=== PATIENT | male | born 1955 | race Caucasian/White ===

== ENCOUNTER 2017-03-16 06:06 | Inpatient (IN) ==
[2017-03-16] MEDS ORDERED: Ipratropium/Albuterol Neb 3 ML IH ONE (06:21)
--- NOTE | 2017-03-16 06:34 | Emergency Department Note ---
Disposition Clinical Impression: ALMA (acute kidney injury) CHF (congestive heart failure) Qualifiers: Congestive heart failure type: systolic Congestive heart failure chronicity: acute on chronic Qualified Code(s): I50.23 - Acute on chronic systolic ( congestive) heart failure Disposition: Admitted As Inpatient Condition: Undetermined SOB HPI - General Chief Complaint: ED Shortness of Breath/Dyspnea Stated Complaint: CHF Time Seen by Provider: 03/16/17 06:13 Source: patient Mode of arrival: private vehicle Limitations: no limitations Nursing Notes Reviewed: Yes Vital Signs Reviewed: Yes - History of Present Illness Pt Subjective Complaint: shortness of breath Onset (ago): day(s) (3) Context: other Severity: moderate, severe Consistency/Duration: constant Improves with: oxygen, upright position Worsens with: lying flat, exertion, coughing Known history of: COPD, congestive heart failure Associated symptoms: Reports: cough, orthopnea, other ("belly is bigger than usual"). Denies: chest pain, pain with inspiration, fever, wheezing, sputum production, lower extremity pain, polyuria, polydipsia, parasthesias, palpitations, hemoptysis, diaphoresis, nausea/vomiting, syncope, abdominal pain , rash Treatment prior to arrival: none, diuretics (usual dose of Lasix taken daily - 80mg QAM) Cough present: Yes Cough Description: Voluntary, Involuntary, Non-Productive, Weak, Loose, Rattling Cough Frequency: Intermittent Sputum production: No - Related Data Home oxygen amount: none Home Medications Medication Instructions Recorded Confirmed Amiodarone [Cordarone] 200 mg PO DAILY 03/16/17 03/16/17 Aspirin Enteric Coated [Aspirin EC] 81 mg PO DAILY 03/16/17 03/16/17 Atorvastatin [Lipitor] 40 mg PO HS 03/16/17 03/16/17 Furosemide [Lasix] 40 mg PO BID 03/16/17 03/16/17 Losartan Potassium [Cozaar] 100 mg PO DAILY 03/16/17 03/16/17 Melatonin/Pyridoxine HCl (B6) 3 mg PO HS 03/16/17 03/16/17 [Melatonin 3 mg Tablet] Methocarbamol [Robaxin] 500 mg PO TID 03/16/17 03/16/17 Metoprolol [Lopressor] 75 mg PO BID 03/16/17 03/16/17 Oxycodone HCl/Acetaminophen 1 tab PO TID PRN 03/16/17 03/16/17 [Percocet 7.5-325 mg Tablet] Pantoprazole Sodium [Protonix] 40 mg PO BID 03/16/17 03/16/17 Pregabalin [Lyrica] 75 mg PO BID 03/16/17 03/16/17 SitaGLIPtin [Januvia] 50 mg PO DAILY 03/16/17 03/16/17 Spironolactone [Aldactone] 25 mg PO DAILY 03/16/17 03/16/17 Tiotropium [Spiriva] 18 mcg IH DAILY 03/16/17 03/16/17 glyBURIDE [GlyBURIDE] 2.5 mg PO BIDWM 03/16/17 03/16/17 Allergies Allergy/AdvReac Type Severity Reaction Status Date / Time Penicillins [PCN] AdvReac See Verified 03/16/17 08:00 Comments All systems ED: reviewed and negative except as stated. Review of Systems: As Per HPI Constitutional: Denies: fever, chills, weakness, night sweats Eyes: Denies: eye discharge, vision change ENT ED: Denies: throat pain, congestion, dysphagia Cardiovascular: Reports: dyspnea on exertion ("more so than usual"), orthopnea. Denies: chest pain, palpitations, edema, syncope, paroxysmal nocturnal dyspnea Respiratory: Reports: as per HPI, cough, dyspnea. Denies: wheezes, hemoptysis, stridor, sputum production Gastrointestinal: Denies: abdominal pain, nausea, vomiting, diarrhea Genitourinary: Denies: urgency, dysuria, frequency, hematuria Musculoskeletal: Denies: back pain, neck pain, joint swelling, arthralgia, myalgia Integumentary: Denies: rash Neurological: Denies: headache, weakness, numbness, paresthesias, confusion, abnormal gait, vertigo Endocrine: Reports: fatigue Hematological/Lymphatic: Denies: easy bleeding, easy bruising Allergic/Immunologic: Denies: facial swelling Past Medical History - Past Medical History Attestation: Yes The following information was validated with the patient. Source: patient Medical history: Reports: CHF, COPD, diabetes, hyperlipidemia, hypertension, myocardial infarction Surgical history: Reports: coronary bypass (CABG) (3 vessel) Psychiatric history: Reports: no psych history - Social History Smoking Status: Current every day smoker Alcohol use: Reports: none Drug use: Reports: none Physical Exam - General Limitations: no limitations General appearance: alert, in no apparent distress - Head Head exam: atraumatic, normocephalic, normal inspection - Eye Eye exam: Present: other (right pupil abnormal - chronic). Absent: scleral icterus, conjunctival injection, periorbital swelling - ENT ENT exam: mucous membranes moist - Neck Neck exam: Present: normal inspection, full ROM, trachea midline. Absent: meningismus, lymphadenopathy - Expanded Neck Exam Neck exam focused ED: Absent: JVD - Chest Chest inspection: Present: normal inspection, symmetric chest wall rise. Absent : tenderness - Respiratory Respiratory exam: Absent: respiratory distress, wheezes, stridor, accessory muscle use, prolonged expiratory phase - Expanded Respiratory Exam Location: wheezes: Left, Right, Upper (faint, end expiratory), rales: Left, Right, Upper, Lower - Cardiovascular Cardiovascular exam: Present: regular rate, normal rhythm - Abdominal Exam Abdominal exam: Present: soft, Non-Tender, distention, ascites. Absent: guarding, rebound, rigidity, organomegaly, mass, pulsatile mass - Extremities Exam Extremities exam: Present: normal inspection, full ROM, normal capillary refill. Absent: pedal edema, calf tenderness - Back Exam Back exam: Present: normal inspection, full ROM. Absent: tenderness - Neurological Exam Neurological exam: Present: alert, oriented X3, CN II-XII intact - Psychiatric Psychiatric exam: Present: normal affect, normal mood - Skin Skin exam: Present: warm, dry, intact, normal color Course Course Narrative: Patient presents from home with his daughter for evaluation of dyspnea. He has been feeling short of breath for the past three days. He states, "I think it is CHF again." He does not know when his last echocardiogram was. He denies any recent changes in any of his medications. He denies lower extremity edema, fever, chills, nausea, vomiting, hemoptysis, leg pain, Chest pain, dizziness, or lightheadedness. He describes orthopnea and dyspnea on exertion. He states that these are both worse than usual. He has a history of COPD, but states it is just does not feel tight. It just feels "full". In triage the patient's blood pressure was very elevated 169/100, however, when the patient was brought back to the room, the blood pressure was rechecked and was found to be in the high 90s to low 100s systolic, symmetric bilaterally. It is unclear whether a different cuff was used in the triage area or perhaps the patient was having a coughing spell. Either way, his blood pressure has been rechecked multiple times and has been in the low 100s over 60s. Heart rate has fluctuated between 70s to 120s. It becomes elevated when he is coughing. He has rather lengthy episodes of loose sounding, but weak and nonproductive cough. He has significant rales bilaterally. His EKG shows sinus rhythm with right bundle- branch block, rate is 72. This is unchanged compared to previous from July 2014. EKG was reviewed by the current attending. Given the patient's low- normal blood pressure with significant rales and room air hypoxia a small dose of Lasix was given. Chest x-ray and labs are pending. Patient will require admission for further evaluation and treatment of suspected CHF exacerbation. Patient is feeling a little bit better. He is still requiring oxygen. Chest x- ray shows CHF with pulmonary vascular congestion. Labs show acute renal insufficiency and a troponin of 0.04. BNP is 603. He is still anemic, worse than October, but better than July. He is not sure what the cause of his anemia is. He is not even sure if he followed up with his primary care provider about his anemia. He does not know what medications he takes other than his blood pressure medicine and his Lasix. He is pleasant and cooperative but is a very poor historian. He does not know when his last echocardiogram was and does not know what his EF is. I cannot find a record of an echocardiogram done here. Case was discussed with Dr. Correia. He has had [id number] time with patient has reviewed the lab and EKG findings as well as the x-ray findings. He agrees with the assessment and plan. Case was discussed with Dr. Campbell, the hospitalist. Patient has been accepted for admission. Vital Signs Temperature 97.9 F 03/16/17 06:07 Pulse Rate 78 03/16/17 06:07 Respiratory Rate 12 03/16/17 06:07 Blood Pressure 163/109 03/16/17 06:07 O2 Sat by Pulse Oximetry 85 03/16/17 06:07 Temperature 97.4 F L 03/16/17 16:00 Pulse Rate 75 03/16/17 16:00 Respiratory Rate 16 03/16/17 16:00 Blood Pressure 134/65 03/16/17 16:00 O2 Sat by Pulse Oximetry 97 03/16/17 12:15 Oxygen Delivery Oxygen Delivery Nasal Cannula Shortness of Breath/Dyspnea - [facility] Narrative Medical decision making narrative: This documentation is done with the assistance of Dragon dictation. There may be inaccuracies in sanipractic physician or spelling and typographical errors. I examined this patient and my medical decision-making was reviewed with the Resident Physician. I agree with the documented findings, disposition and treatment plan as described except to the extent set forth below. Patient was seen initially by Luiza HALL. She has been evaluated patient when I got here at 7 AM. Patient is a history of CHF. He initially low sats in the 80s, but improved into the 90s once he had oxygen. They have given him a dose of Lasix. And he is more comfortable. Chest x-ray and labs are done and plan will be for admission. Patient's in agreement with this plan. Chest X-Ray 03/16/17 06:12 IMPRESSION: CHF and mild pulmonary vascular congestion. D/ / Jeffrey Mcmahan MD / Jeffrey Mcmahan MD Interpreting Provider: Jeffrey Mcmahan MD [id number] hrs.: Patient's troponin is elevated, no chest pain now. He did get aspirin here. He does have increase in his creatinine consistent with ALMA. He does have CHF. We will bring him into the hospital telemetry bed. He is in agreement this plan. - Lab Data Result diagrams: 03/16/17 06:23 03/16/17 06:23 Lab Results 03/16/17 03/16/17 03/16/17 Range/Units 06:23 06:23 06:23 WBC 10.1 (4.3-11.1) K/mcL RBC 3.90 L (4.19-5.50) M/mcL Hgb 9.8 L (12.9-16.9) g/dL Hct 31.7 L (37.5-50.1) % MCV 81.3 L (83.0-100.0) fL MCH 25.1 L (28.0-33.3) pg MCHC 30.9 L (31.6-35.5) g/dL RDW 17.2 H (11.5-14.5) % Plt Count 202 (140-400) K/mcL MPV 10.5 (9.4-12.4) fL Immature Gran % 0.6 (0-4) % Seg Neutrophils % 74.9 % Lymphocytes % 11.5 % Monocytes % 12.0 % Eosinophils % 0.6 % Basophils % 0.4 % Neutrophils # 7.6 (1.6-8.9) K/mcL Lymphocytes # 1.2 (0.6-4.6) K/mcL Monocytes # 1.2 (0.0-1.3) K/mcL Eosinophils # 0.1 (0.0-0.6) K/mcL Basophils # 0.0 (0.0-0.2) K/mcL Nucleated RBCs/100 WBC 0.3 H (0) /100 WBC Sodium 133 L (136-145) mEq/L Potassium 4.5 (3.5-5.1) mEq/L Chloride 97 L (98-107) mEq/L Carbon Dioxide 27 (23-29) mEq/L BUN 58 H (8-23) mg/dL Creatinine 2.35 H (0.70-1.30) mg/dL Est GFR ( Amer) 34 L (> 60) Est GFR (Non-Af Amer) 28 L (> 60) BUN/Creatinine Ratio 25 (6-26) Glucose 357 H (70-105) mg/dL POC Glucose (58-89) Calculated Osmolality 307 H (280-300) Lactic Acid 1.1 (0.5-2.2) mmol/L Calcium 8.5 L (8.6-10.3) mg/dL Total Bilirubin 0.4 (0.3-1.0) mg/dL Direct Bilirubin 0.1 (0.0-0.2) mg/dL Indirect Bilirubin 0.3 (0.0-1.2) mg/dL AST 16 (13-39) Units/L ALT 24 (7-52) Units/L Alkaline Phosphatase 89 (34-104) Units/L Troponin I (< 0.04) ng/mL B-Natriuretic Peptide (Less than 100) pg/mL Serum Total Protein 7.5 (6.4-8.9) g/dL Albumin 3.7 (3.5-5.7) g/dL Globulin 3.8 H (2.4-3.5) g/dL Albumin/Globulin Ratio 1.0 L (1.1-2.2) 03/16/17 03/16/17 03/16/17 Range/Units 06:23 06:23 08:49 WBC (4.3-11.1) K/mcL RBC (4.19-5.50) M/mcL Hgb (12.9-16.9) g/dL Hct (37.5-50.1) % MCV (83.0-100.0) fL MCH (28.0-33.3) pg MCHC (31.6-35.5) g/dL RDW (11.5-14.5) % Plt Count (140-400) K/mcL MPV (9.4-12.4) fL Immature Gran % (0-4) % Seg Neutrophils % % Lymphocytes % % Monocytes % % Eosinophils % % Basophils % % Neutrophils # (1.6-8.9) K/mcL Lymphocytes # (0.6-4.6) K/mcL Monocytes # (0.0-1.3) K/mcL Eosinophils # (0.0-0.6) K/mcL Basophils # (0.0-0.2) K/mcL Nucleated RBCs/100 WBC (0) /100 WBC Sodium (136-145) mEq/L Potassium (3.5-5.1) mEq/L Chloride (98-107) mEq/L Carbon Dioxide (23-29) mEq/L BUN (8-23) mg/dL Creatinine (0.70-1.30) mg/dL Est GFR ( Amer) (> 60) Est GFR (Non-Af Amer) (> 60) BUN/Creatinine Ratio (6-26) Glucose (70-105) mg/dL POC Glucose 350 H (58-89) Calculated Osmolality (280-300) Lactic Acid (0.5-2.2) mmol/L Calcium (8.6-10.3) mg/dL Total Bilirubin (0.3-1.0) mg/dL Direct Bilirubin (0.0-0.2) mg/dL Indirect Bilirubin (0.0-1.2) mg/dL AST (13-39) Units/L ALT (7-52) Units/L Alkaline Phosphatase (34-104) Units/L Troponin I 0.04 H* (< 0.04) ng/mL B-Natriuretic Peptide 603 H (Less than 100) pg/mL Serum Total Protein (6.4-8.9) g/dL Albumin (3.5-5.7) g/dL Globulin (2.4-3.5) g/dL Albumin/Globulin Ratio (1.1-2.2) 03/16/17 03/16/17 Range/Units 11:35 13:27 WBC (4.3-11.1) K/mcL RBC (4.19-5.50) M/mcL Hgb (12.9-16.9) g/dL Hct (37.5-50.1) % MCV (83.0-100.0) fL MCH (28.0-33.3) pg MCHC (31.6-35.5) g/dL RDW (11.5-14.5) % Plt Count (140-400) K/mcL MPV (9.4-12.4) fL Immature Gran % (0-4) % Seg Neutrophils % % Lymphocytes % % Monocytes % % Eosinophils % % Basophils % % Neutrophils # (1.6-8.9) K/mcL Lymphocytes # (0.6-4.6) K/mcL Monocytes # (0.0-1.3) K/mcL Eosinophils # (0.0-0.6) K/mcL Basophils # (0.0-0.2) K/mcL Nucleated RBCs/100 WBC (0) /100 WBC Sodium (136-145) mEq/L Potassium (3.5-5.1) mEq/L Chloride (98-107) mEq/L Carbon Dioxide (23-29) mEq/L BUN (8-23) mg/dL Creatinine (0.70-1.30) mg/dL Est GFR ( Amer) (> 60) Est GFR (Non-Af Amer) (> 60) BUN/Creatinine Ratio (6-26) Glucose (70-105) mg/dL POC Glucose 289 H (58-89) Calculated Osmolality (280-300) Lactic Acid (0.5-2.2) mmol/L Calcium (8.6-10.3) mg/dL Total Bilirubin (0.3-1.0) mg/dL Direct Bilirubin (0.0-0.2) mg/dL Indirect Bilirubin (0.0-1.2) mg/dL AST (13-39) Units/L ALT (7-52) Units/L Alkaline Phosphatase (34-104) Units/L Troponin I 0.05 H* (< 0.04) ng/mL B-Natriuretic Peptide (Less than 100) pg/mL Serum Total Protein (6.4-8.9) g/dL Albumin (3.5-5.7) g/dL Globulin (2.4-3.5) g/dL Albumin/Globulin Ratio (1.1-2.2)
[2017-03-16] MEDS ORDERED: Furosemide 20 MG/2 ML VIAL IVP ONE (06:35)
[2017-03-16 06:36] LABS: Basophils % 0.4 %; Eosinophils # 0.1 K/mcL (0.0-0.6); Eosinophils % 0.6 %; Hematocrit 31.7 % (37.5-50.1); Hemoglobin 9.8 g/dL (12.9-16.9); Immature Granulocytes % 0.6 % (0-4); Lymphocytes # 1.2 K/mcL (0.6-4.6); Lymphocytes % 11.5 %; Mean Corpuscular HGB Conc 30.9 g/dL (31.6-35.5); Mean Corpuscular Hemoglobin 25.1 pg (28.0-33.3); Mean Corpuscular Volume 81.3 fL (83.0-100.0); Mean Platelet Volume 10.5 fL (9.4-12.4); Monocytes # 1.2 K/mcL (0.0-1.3); Neutrophils # 7.6 K/mcL (1.6-8.9); Nucleated Red Blood Cells 0.3 /100 WBC (0); Platelet Count 202 K/mcL (140-400); Red Cell Distribution Width 17.2 % (11.5-14.5); Segmented Neutrophils % 74.9 %
[2017-03-16 06:52] LABS: Albumin 3.7 g/dL (3.5-5.7); Bilirubin,Direct 0.1 mg/dL (0.0-0.2); Bilirubin,Indirect 0.3 mg/dL (0.0-1.2); Bilirubin,Total 0.4 mg/dL (0.3-1.0); Calcium 8.5 mg/dL (8.6-10.3); Globulin 3.8 g/dL (2.4-3.5); Potassium 4.5 mEq/L (3.5-5.1); Total Protein 7.5 g/dL (6.4-8.9)
[2017-03-16] MEDS ORDERED: Aspirin 81 MG TAB.CHEW PO STA (08:13)
--- NOTE | 2017-03-16 08:22 | Internal Med History&Physical ---
Date of Encounter: 03/16/17 Time of Encounter: 08:19 Assessment and Plan (1) Diastolic CHF Current visit: Yes Status: Acute We will start the patient on Lasix 40 mg IV twice daily. Strict intake and output. Check echocardiogram. Qualifiers: Qualified Code(s): I50.30 - Unspecified diastolic (congestive) heart failure (2) Elevated troponin Current visit: Yes Status: Acute Likely due to demand ischemia and acute kidney injury. He denies any chest pain. EKG shows right bundle branch block similar to baseline. Appreciate cardiology input. Trend troponin (3) ALMA (acute kidney injury) Current visit: Yes Status: Acute Likely due to congestion and cardio renal syndrome. Follow during diuresis. I will hold lilia inhibitor for now. (4) COPD (chronic obstructive pulmonary disease) Current visit: Yes Status: Acute Will give as needed nebulizer treatment Qualifiers: Qualified Code(s): J44.9 - Chronic obstructive pulmonary disease, unspecified (5) Diabetes mellitus type 2 in nonobese Current visit: Yes Status: Acute Sliding scale insulin. Check hemoglobin A-1 C. Internal Medicine - H&P: HPI Chief complaint: sob History of present illness: Mr. Oates is a 61 year old male with a history of coronary artery disease status post cabbage, presents to the emergency room today with the main complaint of shortness of breath associated with orthopnea and mild swelling of both lower extremities. For the past week the patient mentioned that his weight was 180 pounds and today 2 month later his weight is 200 pounds. Lasix dose has been recently increased a few months ago to 40 mg twice a day to which she is compliant is not been compliant with his diet and eights excess salts. He has been having cough which is nonproductive. No fevers chills. He denies any chest pain. Past Med Surg Social Fam HX - Past Medical History Medical history: CHF, COPD, diabetes, hyperlipidemia, hypertension, myocardial infarction Psychiatric history: no psych history - Past Surgical History Surgical History: coronary bypass (CABG) (3 vessel) - Social History Smoking Status: Current every day smoker Alcohol use: none Drug use: none Internal Medicine - H&P: Meds Amiodarone [Cordarone] 200 mg PO DAILY 03/16/17 [History] Aspirin Enteric Coated [Aspirin EC] 81 mg PO DAILY 03/16/17 [History] Atorvastatin [Lipitor] 40 mg PO HS 03/16/17 [History] Furosemide [Lasix] 40 mg PO BID 03/16/17 [History] Losartan Potassium [Cozaar] 100 mg PO DAILY 03/16/17 [History] Melatonin/Pyridoxine HCl (B6) [Melatonin 3 mg Tablet] 3 mg PO HS 03/16/17 [ History] Methocarbamol [Robaxin] 500 mg PO TID 03/16/17 [History] Metoprolol [Lopressor] 75 mg PO BID 03/16/17 [History] Oxycodone HCl/Acetaminophen [Percocet 7.5-325 mg Tablet] 1 tab PO TID PRN [History] Pantoprazole Sodium [Protonix] 40 mg PO BID 03/16/17 [History] Pregabalin [Lyrica] 75 mg PO BID 03/16/17 [History] SitaGLIPtin [Januvia] 50 mg PO DAILY 03/16/17 [History] Spironolactone [Aldactone] 25 mg PO DAILY 03/16/17 [History] Tiotropium [Spiriva] 18 mcg IH DAILY 03/16/17 [History] glyBURIDE [GlyBURIDE] 2.5 mg PO BIDWM 03/16/17 [History] 3 Allergy/AdvReac Type Severity Reaction Status Date / Time Penicillins [PCN] AdvReac See Verified 03/16/17 08:00 Comments All Systems PM: A 10-system review of systems was performed and is negative for pertinent findings except as documented above in the HPI. Review of systems: 10 point review of systems is negative except for HPI - Constitutional Vitals: Temp Pulse Resp BP Pulse Ox 97.9 F 70 20 132/71 94 03/16/17 06:07 03/16/17 07:53 03/16/17 07:53 03/16/17 07:53 03/16/17 07:53 Exam: Gen.: patient is alert oriented times 3 not in distress. Cardiac: normal S1 S2 no additional sounds are murmurs. Chest: diminished air entry, basal rales Abdomen: distended but soft nontender Lower extremity trace swelling mucous membranes: moist Internal Med - H&P Results - Labs CBC & Chem 7: 03/16/17 06:23 03/16/17 06:23 Labs: Short CBC 03/16/17 Range/Units 06:23 WBC 10.1 (4.3-11.1) K/mcL Hgb 9.8 L (12.9-16.9) g/dL Hct 31.7 L (37.5-50.1) % Plt Count 202 (140-400) K/mcL Neutrophils # 7.6 (1.6-8.9) K/mcL BMP 03/16/17 06:23 Sodium 133 L Potassium 4.5 Chloride 97 L Carbon Dioxide 27 BUN 58 H Creatinine 2.35 H Glucose 357 H Calcium 8.5 L Cardiac Enzymes 03/16/17 Range/Units 06:23 Troponin I 0.04 H* (< 0.04) ng/mL Liver Function 03/16/17 Range/Units 06:23 Total Bilirubin 0.4 (0.3-1.0) mg/dL Direct Bilirubin 0.1 (0.0-0.2) mg/dL AST 16 (13-39) Units/L ALT 24 (7-52) Units/L Alkaline Phosphatase 89 (34-104) Units/L Albumin 3.7 (3.5-5.7) g/dL - Impressions ITS Impressions Chest X-Ray 03/16/17 06:12 IMPRESSION: CHF and mild pulmonary vascular congestion. D/ / Jeffrey Mcmahan MD / Jeffrey Mcmahan MD Interpreting Provider: Jeffrey Mcmahan MD
[2017-03-16] MEDS ORDERED: Ipratropium/Albuterol Neb 3 ML IH PRN (08:26)
[2017-03-16] MEDS ORDERED: Famotidine 20 MG TABLET PO SCH (09:00)
[2017-03-16] MEDS: Insulin LISPRO 300 UNITS/3 ML VIAL SQ SCH ×3 (09:34→16:22)
[2017-03-16] MEDS: Pantoprazole 40 MG VIAL IVP SCH (11:33)
--- NOTE | 2017-03-16 12:09 | Electrocardiograph Report ---
[facility] Test Date: 2017-03-16 Pat Name: Darwin Oates Department: 104 Room: 3A21 Gender: M [place] Guide: : 1955 Requested By: Tony Foster Order Number: [id number] Reading MD: Scotty Alvarado MD Measurements Intervals [place] Rate: 72 P: 67 TN: 181 QRS: -23 QRSD: 170 T: -4 QT: 463 QTc: 488 Interpretive Statements SINUS RHYTHM INDETERMINATE AXIS RIGHT BUNDLE BRANCH BLOCK Electronically Signed On 03-16-2017 12:07:26 EST by Scotty Alvarado MD
[2017-03-16] MEDS: Spironolactone 25 MG TABLET PO SCH (13:20)
[2017-03-16] MEDS: *HR* Amiodarone 200 MG TABLET PO SCH (13:20)
[2017-03-16] MEDS: Furosemide 40 MG/4 ML VIAL IVP SCH ×2 (13:21→22:23)
[2017-03-16] MEDS: Aspirin 325 MG TABLET PO SCH (13:21)
[2017-03-16] MEDS: *HR* Heparin 5,000 UNIT/ML VIAL SQ SCH ×2 (13:22→22:23)
[2017-03-16] MEDS: Pregabalin 75 MG CAPSULE PO SCH ×2 (13:22→22:23)
[2017-03-16] MEDS: Tiotropium 18 MCG inhalation IH SCH (14:03)
--- NOTE | 2017-03-16 14:58 | Cardiology Consult Note ---
Date of Encounter: 03/16/17 Time of Encounter: 14:30 Assessment and Plan (1) CHF (congestive heart failure) Current Visit: Yes Status: Acute Per cardiology: -Known systolic CHF. Patient reports last TTE at [facility] with LVEF 20-25%. -Presented with worsening shortness of breath. -Chest x-ray with CHF, mild pulmonary vascular congestion. -BNP 603. -Euvolemic on exam. -WEight today 90.7kg. Patient denies weight gain at home. -On lasix 40mg IV BID and aldactone. -Of note, also with ALMA with creatinine 2.35. -TTE pending. -CHF education reinforced. -Strict i/os, fluid restriction, daily weights. Qualifiers: Congestive heart failure type: systolic Congestive heart failure chronicity : acute on chronic Qualified Code(s): I50.23 - Acute on chronic systolic ( congestive) heart failure (2) ALMA (acute kidney injury) Current Visit: Yes Status: Acute Per cardiology: -Creatinine 2.35 on admission. -Baseline 1-1.3 -Management per primary service. -Consider nephrology consult. (3) Elevated troponin Current Visit: Yes Status: Acute Per cardiology: -Troponin 0.04, in the setting of CHF, ALMA. -Denies chest pain. -ECG with no acute ischemic changes. -TTE pending. -on asa, statin, beta analia. -Do not suspect NSTEMI, suspect demand ischemia related to above. No cardiac rehab consult warranted. -Further recommendations pending TTE. (4) CAD (coronary artery disease) Current Visit: Yes Status: Chronic Per cardiology: -KNown CAD s/p CABG 2014 [facility]. -Denies chest pain. -On asa, statin, beta analia. -TTE pending. -Continue current medications. Qualifiers: Coronary Disease-Associated Artery/Lesion type: [place] artery [place] vs. transplanted heart: [place] heart Associated angina: without angina Qualified Code(s): I25.10 - Atherosclerotic heart disease of [place] coronary artery without angina pectoris (5) Ischemic cardiomyopathy Current Visit: Yes Status: Chronic Per cardiology: -Known ischemic cardiomyopathy with previous EF 20-25%. -TTE pending. -On beta analia, Not on lilia/arb due to renal function. -S/p ICD, Denies shocks. reports last device check one month ago at [facility] and reports normal. -Will switch lopressor to toprol for cardiomyopathy. (6) Atrial flutter Current Visit: No Status: Chronic Per cardiology: -KNown history of atrial flutter s/p abation previously. -ECG with SR. -On beta analia. -Not on anticoagulation due to GI bleed requiring blood transfusions. -Currently not on tele. -Will order telemetry. Qualifiers: Atrial flutter type: unspecified Qualified Code(s): I48.92 - Unspecified atrial flutter Discussion w patient/family: The assessment and plan as outlined above was discussed with the patient who expressed understanding and agreement. All questions were answered. Thank you for involving us in the care of your patient. Please call with any questions. Discussed and reviewed with . History of Present Illness Consult date: 03/16/17 Requesting physician: Quentin Campbell Consult reason: CHF Chief complaint: shrotness of breath History of present illness: Mr. Oates is a 61 year old male with a relevant past medical history of CAD s/p CABG, ischemic cardiomyopathy, last LVEF 20-25%, s/p ICD placement, CHF, hyperlipidemia, HTN, atrial flutter s/p ablation not on anticoagulation due to GI bleed. Patient presents to [facility] with complaints of increased shortness of breath at home. Patient denies weight gain at home. Patient reports compliance with medications at home. ALso reports compliance with fluid and sodium restriction. Patient states that he does not follow with cardiology, however states his ICD was checked one month ago at [facility] with reported no issues. Past Med Surg Social Fam HX - Past Medical History Attestation: Yes The following information was validated with the patient. Source: patient, old records reviewed Medical history: atrial fibrillation, cardiomyopathy, CHF, COPD, coronary artery disease, diabetes, GI bleed, hyperlipidemia, hypertension, myocardial infarction Psychiatric history: no psych history - Past Surgical History Surgical History: coronary bypass (CABG) (3 vessel) - Social History Smoking Status: Current every day smoker Packs per day: 1.5 Smokeless Tobacco Status: No Alcohol use: none Drug use: none Medications and Allergies Amiodarone [Cordarone] 200 mg PO DAILY 03/16/17 [History] Aspirin Enteric Coated [Aspirin EC] 81 mg PO DAILY 03/16/17 [History] Atorvastatin [Lipitor] 40 mg PO HS 03/16/17 [History] Furosemide [Lasix] 40 mg PO BID 03/16/17 [History] Losartan Potassium [Cozaar] 100 mg PO DAILY 03/16/17 [History] Melatonin/Pyridoxine HCl (B6) [Melatonin 3 mg Tablet] 3 mg PO HS 03/16/17 [ History] Methocarbamol [Robaxin] 500 mg PO TID 03/16/17 [History] Metoprolol [Lopressor] 75 mg PO BID 03/16/17 [History] Oxycodone HCl/Acetaminophen [Percocet 7.5-325 mg Tablet] 1 tab PO TID PRN [History] Pantoprazole Sodium [Protonix] 40 mg PO BID 03/16/17 [History] Pregabalin [Lyrica] 75 mg PO BID 03/16/17 [History] SitaGLIPtin [Januvia] 50 mg PO DAILY 03/16/17 [History] Spironolactone [Aldactone] 25 mg PO DAILY 03/16/17 [History] Tiotropium [Spiriva] 18 mcg IH DAILY 03/16/17 [History] glyBURIDE [GlyBURIDE] 2.5 mg PO BIDWM 03/16/17 [History] 3 Allergy/AdvReac Type Severity Reaction Status Date / Time Penicillins [PCN] AdvReac See Verified 03/16/17 08:00 Comments All Systems Review: A 10-system review of systems was performed and is negative for pertinent findings except as documented above in the HPI. - Cardiovascular Cardiovascular: as per HPI, dyspnea on exertion Physical Examination Vital Signs Temperature 97.9 F 03/16/17 06:07 Pulse Rate 78 03/16/17 06:07 Respiratory Rate 12 03/16/17 06:07 Blood Pressure 163/109 03/16/17 06:07 O2 Sat by Pulse Oximetry 85 03/16/17 06:07 Temperature 97.3 F L 03/16/17 12:15 Pulse Rate 64 03/16/17 13:45 Respiratory Rate 20 03/16/17 12:15 Blood Pressure 99/52 03/16/17 13:45 O2 Sat by Pulse Oximetry 97 03/16/17 12:15 Oxygen Delivery Oxygen Delivery Nasal Cannula General: Conversant, No Apparent Distress HEENT: Atraumatic, Normocephaly, Mucus Membranes Moist Neck: No JVD, Normal carotid pulses Cardiac: Reg Rate and Rhythm, Normal S1 and S2, No Murmur Lungs: Normal Breath Sounds, No Wheeze, Rales, Rhonchi Neuro: Alert and responsive, No focal deficits noted Abdomen: Soft, Non-Tender Skin: No rashes noted on visualized skin Musculoskeletal: No Chest Wall Tenderness Extremities: No Clubbing, No Cyanosis, No Edema, Normal Pulses Results 03/16/17 06:23 03/16/17 06:23 Impressions Chest X-Ray 03/16/17 06:12 IMPRESSION: CHF and mild pulmonary vascular congestion. D/ / Jeffrey Mcmahan MD / Jeffrey Mcmahan MD Interpreting Provider: Jeffrey Mcmahan MD Active Medications Albuterol/Ipratropium (Duoneb) 3 ml IH [id number] PRN PRN Reason: Shortness Of Breath/Wheezing Stop: 09/15/17 08:27 Amiodarone HCl (Cordarone) 200 mg PO DAILY [facility] Stop: 09/15/17 09:01 Last Admin: 03/16/17 13:20 Dose: Not Given Aspirin (Aspirin) 325 mg PO DAILY [facility] Stop: 09/15/17 09:01 Last Admin: 03/16/17 13:21 Dose: Not Given Atorvastatin Calcium (Lipitor) 40 mg PO HS [facility] Stop: 09/15/17 21:01 Famotidine (Pepcid) 10 mg PO HS JOAN PRN Reason: Protocol Stop: 09/16/17 21:01 Furosemide (Lasix) 40 mg IVP BID [facility] Stop: 09/15/17 09:01 Last Admin: 03/16/17 13:21 Dose: Not Given Heparin Sodium (Porcine) (Heparin) 5,000 unit SQ Q8HCO [facility] Stop: 09/15/17 14:01 Last Admin: 03/16/17 13:22 Dose: 5,000 unit Insulin Human Lispro (Humalog) 0 units SQ QIDAC JOAN PRN Reason: Protocol Stop: 09/15/17 11:31 Last Admin: 03/16/17 13:23 Dose: 8 units Melatonin (Melatonin) 3 mg PO HS [facility] Stop: 07/07/18 21:01 Metoprolol Tartrate (Lopressor) 50 mg PO BID JOAN Stop: 09/15/17 09:01 Last Admin: 03/16/17 13:21 Dose: Not Given Pantoprazole Sodium (Protonix) 40 mg IVP DAILY [facility] Stop: 09/15/17 09:01 Last Admin: 03/16/17 11:33 Dose: 40 mg Pregabalin (Lyrica) 75 mg PO BID JOAN Stop: 09/15/17 09:01 Last Admin: 03/16/17 13:22 Dose: 75 mg Spironolactone (Aldactone) 25 mg PO DAILY [facility]AN Stop: 09/15/17 09:01 Last Admin: 03/16/17 13:20 Dose: Not Given Tiotropium [place] (Spiriva) 18 mcg IH DAILY [facility] Stop: 09/15/17 09:01 Last Admin: 03/16/17 14:03 Dose: Not Given Laboratory Tests 08/08/14 10/21/16 03/16/17 19:01 22:10 06:23 Hgb 9.8 L Creatinine 1.21 1.37 H Troponin I B-Natriuretic Peptide 03/16/17 03/16/17 03/16/17 06:23 06:23 06:23 Hgb Creatinine 2.35 H Troponin I 0.04 H* B-Natriuretic Peptide 603 H - Imaging and Cardiology Chest Xray: report reviewed Echo: report reviewed - EKG Interpretation EKG results cardiology: personally reviewed (ECG with SR, RBBB, HR 72.), other ( Not on telemetry.) Consult Discharge Plan - Plan Referrals: Missael Jameson MD [Primary Care Provider] -
[2017-03-16] MEDS: Melatonin 3 MG TABLET PO SCH (22:23)
[2017-03-17] MEDS: *HR* Heparin 5,000 UNIT/ML VIAL SQ SCH ×3 (06:03→21:13)
[2017-03-17 06:29] LABS: Hemoglobin A1C 9.4 %
[2017-03-17 06:40] LABS: Calcium 8.7 mg/dL (8.6-10.3); Magnesium 2.2 mg/dL (1.6-2.6); Potassium 4.6 mEq/L (3.5-5.1)
[2017-03-17 06:46] LABS: Basophils # 0.1 K/mcL (0.0-0.2); Basophils % 0.5 %; Eosinophils # 0.1 K/mcL (0.0-0.6); Eosinophils % 1.1 %; Hematocrit 32.4 % (37.5-50.1); Immature Granulocytes % 1.2 % (0-4); Lymphocytes # 1.1 K/mcL (0.6-4.6); Lymphocytes % 10.6 %; Mean Corpuscular HGB Conc 30.9 g/dL (31.6-35.5); Mean Corpuscular Hemoglobin 25.6 pg (28.0-33.3); Mean Corpuscular Volume 83.1 fL (83.0-100.0); Mean Platelet Volume 10.8 fL (9.4-12.4); Monocytes # 0.9 K/mcL (0.0-1.3); Monocytes % 9.4 %; Neutrophils # 7.7 K/mcL (1.6-8.9); Platelet Count 191 K/mcL (140-400); Red Cell Distribution Width 17.2 % (11.5-14.5); Segmented Neutrophils % 77.2 %
[2017-03-17] MEDS: Tiotropium 18 MCG inhalation IH SCH (08:07)
[2017-03-17] MEDS: Metoprolol XL (24 HR) Succ 50 MG TAB.ER.24H PO SCH (10:10)
[2017-03-17] MEDS: Pregabalin 75 MG CAPSULE PO SCH ×2 (10:10→21:14)
[2017-03-17] MEDS: Aspirin 325 MG TABLET PO SCH (10:10)
[2017-03-17] MEDS: Spironolactone 25 MG TABLET PO SCH (10:10)
[2017-03-17] MEDS: Furosemide 40 MG/4 ML VIAL IVP SCH ×2 (10:10→21:13)
[2017-03-17] MEDS: *HR* Amiodarone 200 MG TABLET PO SCH (10:10)
[2017-03-17] MEDS: Pantoprazole 40 MG VIAL IVP SCH (10:11)
--- NOTE | 2017-03-17 15:49 | Internal Med Progress Note ---
Date of Encounter: 03/17/17 Time of Encounter: 15:48 - Assessment and plan (1) Acute exacerbation of congestive heart failure Current Visit: Yes Status: Acute Assessment and plan: Echocardiogram done 03/17/17: LVEF 50% with moderate pulmonary HTN and mild- moderate . Prior echocardiogram showed EF 20-25% Continue diuresis with IV Lasix 40 mg IV BID. Cardiology following, recommendations appreciated. I attempted to wean patient off oxygen today and he stayed at 84% on 1 L NC O2. Qualifiers: Congestive heart failure type: combined Qualified Code(s): I50.43 - Acute on chronic combined systolic (congestive) and diastolic (congestive) heart failure (2) Elevated troponin Current Visit: Yes Status: Acute Assessment and plan: went from 0.04, 0.05 now back down to 0.04. Likely was demand ischemia. (3) ALMA (acute kidney injury) Current Visit: Yes Status: Acute Assessment and plan: Improved from 2.35 to 1.68 today. Was possibly due to cardiorenal syndrome. Nephrotoxic medications held, recheck BMP in AM. Patient needs to continue diuresis as he was desaturating easily on room air. (4) COPD (chronic obstructive pulmonary disease) Current Visit: Yes Status: Acute Assessment and plan: Not in acute exacerbation. Qualifiers: Qualified Code(s): J44.9 - Chronic obstructive pulmonary disease, unspecified (5) Diabetes mellitus type 2 in nonobese Current Visit: Yes Status: Acute Assessment and plan: insulin sliding scale. Currently running 217-293 today, will start basal insulin based on body weight. (6) CAD (coronary artery disease) Current Visit: Yes Status: Chronic Assessment and plan: On aspirin, lipitor Qualifiers: Coronary Disease-Associated Artery/Lesion type: [place] artery [place] vs. transplanted heart: [place] heart Associated angina: without angina Qualified Code(s): I25.10 - Atherosclerotic heart disease of [place] coronary artery without angina pectoris (7) Atrial flutter Current Visit: No Status: Chronic Qualifiers: Atrial flutter type: unspecified Qualified Code(s): I48.92 - Unspecified atrial flutter - Subjective Interval history: Patient would like to leave but admits he is short of breath - Constitutional Vitals: Temp Pulse Resp BP Pulse Ox 97.9 F 61 18 124/68 95 03/17/17 11:00 03/17/17 11:00 03/17/17 11:00 03/17/17 11:00 03/17/17 11:00 Exam: Gen: NAD CVS: RRR Lungs: Good air exchange, fine rales at bases, no wheezing Ext: trace bipedal pitting edema Internal Medicine: Result - Labs CBC & Chem 7: 03/17/17 05:45 03/17/17 05:45 Labs: Short CBC 03/17/17 Range/Units 05:45 WBC 10.0 (4.3-11.1) K/mcL Hgb 10.0 L (12.9-16.9) g/dL Hct 32.4 L (37.5-50.1) % Plt Count 191 (140-400) K/mcL Neutrophils # 7.7 (1.6-8.9) K/mcL BMP 03/17/17 05:45 Sodium 140 Potassium 4.6 Chloride 101 Carbon Dioxide 32 H BUN 47 H Creatinine 1.68 H Glucose 209 H Calcium 8.7 Cardiac Enzymes 03/16/17 Range/Units 18:50 Troponin I 0.04 H* (< 0.04) ng/mL - Impressions Impressions Echocardiogram 03/17/17 07:00 Impressions: LVEF 50%. Mild concentric left ventricular hypertrophy. Moderate pulmonary hypertension. Mild-moderate aortic stenosis. Findings: Study Quality * Technically adequate exam. Right Ventricle * Normal right ventricular structure and function. Left Atrium * Normal left atrial size. Right Atrium * Normal right atrial size. Aorta * Normally sized aortic root. Pericardium * The pericardium appears normal. Mitral Valve * No mitral regurgitation. * No mitral stenosis. * Mildly calcified mitral valve leaflets. Aortic Valve * No aortic regurgitation. * Moderately calcified aortic valve leaflets. * Aortic valve leaflets are restricted. * Peak and mean gradients are 29 12 mmHg, respectively. * Mild-moderate aortic stenosis. Left Ventricle * Mild concentric left ventricular hypertrophy. * LVEF 50%. * Normal left ventricular diastolic function. * Atypical septal motion consistent with bundle branch block. Device lead * A device lead was visualized in the right atrium and right ventricle. Tricuspid Valve * Trace tricuspid regurgitation. * No tricuspid stenosis. * Trace tricuspid regurgitation. * Estimated RVSP is 52 mmHg. * Moderate pulmonary hypertension. Interatrial Septum * Interatrial septum not well evaluated. IVC * The IVC is not well evaluated. * The IVC is not dilated. Consult Discharge Plan - Plan Referrals: Missael Jameson MD [Primary Care Provider] -
[2017-03-17] MEDS: Insulin LISPRO 300 UNITS/3 ML VIAL SQ SCH (17:36)
[2017-03-17] MEDS: Melatonin 3 MG TABLET PO SCH (21:13)
[2017-03-17] MEDS: Insulin DETEMIR 100 UNIT/ML X5UNITS SQ SCH (21:13)
[2017-03-17] MEDS: Famotidine 20 MG TABLET PO SCH (21:14)
[2017-03-18] MEDS: *HR* Heparin 5,000 UNIT/ML VIAL SQ SCH ×3 (06:02→22:13)
[2017-03-18 06:50] LABS: Basophils # 0.1 K/mcL (0.0-0.2); Basophils % 0.4 %; Eosinophils # 0.2 K/mcL (0.0-0.6); Eosinophils % 1.4 %; Hematocrit 32.8 % (37.5-50.1); Immature Granulocytes % 0.5 % (0-4); Lymphocytes # 1.4 K/mcL (0.6-4.6); Lymphocytes % 11.7 %; Mean Corpuscular HGB Conc 30.5 g/dL (31.6-35.5); Mean Corpuscular Hemoglobin 25.3 pg (28.0-33.3); Mean Corpuscular Volume 82.8 fL (83.0-100.0); Mean Platelet Volume 10.4 fL (9.4-12.4); Monocytes # 1.1 K/mcL (0.0-1.3); Monocytes % 8.9 %; Neutrophils # 9.1 K/mcL (1.6-8.9); Platelet Count 199 K/mcL (140-400); Red Blood Count 3.96 M/mcL (4.19-5.50); Red Cell Distribution Width 17.1 % (11.5-14.5); Segmented Neutrophils % 77.1 %
[2017-03-18 07:05] LABS: BUN/Creatinine Ratio 32 (6-26); Blood Urea Nitrogen 46 mg/dL (8-23); Carbon Dioxide 34 mEq/L (23-29); Chloride 102 mEq/L (98-107); Glucose 81 mg/dL (70-105); Osmolality,Calculated 303 (280-300); Potassium 4.6 mEq/L (3.5-5.1); Sodium 141 mEq/L (136-145); eGFR For African Americans > 60 (> 60); eGFR For Non-African Americans 50 (> 60)
[2017-03-18] MEDS: Tiotropium 18 MCG inhalation IH SCH (08:15)
[2017-03-18] MEDS: Metoprolol XL (24 HR) Succ 50 MG TAB.ER.24H PO SCH (09:14)
[2017-03-18] MEDS: *HR* Amiodarone 200 MG TABLET PO SCH (09:14)
[2017-03-18] MEDS: Spironolactone 25 MG TABLET PO SCH (09:14)
[2017-03-18] MEDS: Furosemide 40 MG/4 ML VIAL IVP SCH ×2 (09:14→22:13)
[2017-03-18] MEDS: Aspirin 325 MG TABLET PO SCH (09:14)
[2017-03-18] MEDS: Pregabalin 75 MG CAPSULE PO SCH ×2 (09:14→22:13)
[2017-03-18] MEDS: Pantoprazole 40 MG VIAL IVP SCH (09:14)
[2017-03-18] MEDS: Insulin LISPRO 300 UNITS/3 ML VIAL SQ SCH ×3 (09:15→18:43)
--- NOTE | 2017-03-18 14:07 | Internal Med Progress Note ---
Date of Encounter: 03/18/17 Time of Encounter: 14:04 - Assessment and plan (1) Acute exacerbation of congestive heart failure Current Visit: Yes Status: Acute Assessment and plan: Echocardiogram done 03/17/17: LVEF 50% with moderate pulmonary HTN and mild- moderate . Prior echocardiogram showed EF 20-25% Continue diuresis with IV Lasix 40 mg IV BID. Cardiology evaluated patient, agree to diueresis Patient cannot be weaned off O2, will continue diuresis. Anticipate discharge tomorrow with home oxygen. Qualifiers: Congestive heart failure type: combined Qualified Code(s): I50.43 - Acute on chronic combined systolic (congestive) and diastolic (congestive) heart failure (2) Elevated troponin Current Visit: Yes Status: Acute Assessment and plan: went from 0.04, 0.05 now back down to 0.04. Likely was demand ischemia. (3) ALMA (acute kidney injury) Current Visit: Yes Status: Acute Assessment and plan: Improved from 2.35 to 1.68 today. Was possibly due to cardiorenal syndrome. Nephrotoxic medications held, recheck BMP in AM. Patient needs to continue diuresis as he was desaturating easily on room air. (4) COPD (chronic obstructive pulmonary disease) Current Visit: Yes Status: Acute Assessment and plan: Not in acute exacerbation. Qualifiers: Qualified Code(s): J44.9 - Chronic obstructive pulmonary disease, unspecified (5) Diabetes mellitus type 2 in nonobese Current Visit: Yes Status: Acute Assessment and plan: insulin sliding scale. Currently running 217-293 today, will start basal insulin based on body weight. (6) CAD (coronary artery disease) Current Visit: Yes Status: Chronic Assessment and plan: On aspirin, lipitor Qualifiers: Coronary Disease-Associated Artery/Lesion type: [place] artery [place] vs. transplanted heart: [place] heart Associated angina: without angina Qualified Code(s): I25.10 - Atherosclerotic heart disease of [place] coronary artery without angina pectoris (7) Atrial flutter Current Visit: No Status: Chronic Qualifiers: Atrial flutter type: unspecified Qualified Code(s): I48.92 - Unspecified atrial flutter - Subjective Interval history: Patient in AM did not have O2 on and was desaturating to 86% and NC had to be placed on and O2 increased. He denies chest pain, n/v, diaphoresis. - Constitutional Vitals: Temp Pulse Resp BP Pulse Ox 97.5 F L 60 18 129/64 100 03/18/17 10:29 03/18/17 10:29 03/18/17 10:29 03/18/17 10:29 03/18/17 10:29 Exam: Gen: NAD, AAOx3 CVS: RRR Lungs: good air exchange, fine rales at bases, scatered wheezing Abd: NT/ND Ext: trace bipedal edema Internal Medicine: Result - Labs CBC & Chem 7: 03/18/17 06:11 03/18/17 06:11 Labs: Short CBC 03/18/17 Range/Units 06:11 WBC 11.8 H (4.3-11.1) K/mcL Hgb 10.0 L (12.9-16.9) g/dL Hct 32.8 L (37.5-50.1) % Plt Count 199 (140-400) K/mcL Neutrophils # 9.1 H (1.6-8.9) K/mcL BMP 03/18/17 06:11 Sodium 141 Potassium 4.6 Chloride 102 Carbon Dioxide 34 H BUN 46 H Creatinine 1.45 H Glucose 81 Calcium 9.0 Consult Discharge Plan - Plan Referrals: Missael Jameson MD [Primary Care Provider] -
[2017-03-18] MEDS: Famotidine 20 MG TABLET PO SCH (22:12)
[2017-03-18] MEDS: Insulin DETEMIR 100 UNIT/ML X5UNITS SQ SCH (23:24)
[2017-03-18] MEDS: Melatonin 3 MG TABLET PO SCH (23:24)
[2017-03-19 05:38] LABS: Basophils % 0.5 %; Eosinophils # 0.2 K/mcL (0.0-0.6); Eosinophils % 1.7 %; Hematocrit 33.6 % (37.5-50.1); Hemoglobin 10.2 g/dL (12.9-16.9); Immature Granulocytes % 0.8 % (0-4); Lymphocytes # 1.5 K/mcL (0.6-4.6); Lymphocytes % 16.8 %; Mean Corpuscular HGB Conc 30.4 g/dL (31.6-35.5); Mean Corpuscular Volume 82.4 fL (83.0-100.0); Mean Platelet Volume 10.4 fL (9.4-12.4); Monocytes # 0.6 K/mcL (0.0-1.3); Monocytes % 7.3 %; Neutrophils # 6.3 K/mcL (1.6-8.9); Platelet Count 222 K/mcL (140-400); Red Blood Count 4.08 M/mcL (4.19-5.50); Red Cell Distribution Width 16.9 % (11.5-14.5); Segmented Neutrophils % 72.9 %
[2017-03-19 05:45] LABS: Calcium 8.8 mg/dL (8.6-10.3); Potassium 4.7 mEq/L (3.5-5.1)
[2017-03-19] MEDS: *HR* Heparin 5,000 UNIT/ML VIAL SQ SCH (05:53)
[2017-03-19 07:16] VITALS: BP 124/67
[2017-03-19] MEDS: Spironolactone 25 MG TABLET PO SCH (07:39)
[2017-03-19] MEDS: Aspirin 325 MG TABLET PO SCH (07:39)
[2017-03-19] MEDS: *HR* Amiodarone 200 MG TABLET PO SCH (07:39)
[2017-03-19] MEDS: Insulin LISPRO 300 UNITS/3 ML VIAL SQ SCH ×2 (07:39→11:29)
[2017-03-19] MEDS: Pregabalin 75 MG CAPSULE PO SCH (07:39)
[2017-03-19] MEDS: Furosemide 40 MG/4 ML VIAL IVP SCH (07:40)
[2017-03-19] MEDS: Pantoprazole 40 MG VIAL IVP SCH (07:43)
[2017-03-19] MEDS: Metoprolol XL (24 HR) Succ 50 MG TAB.ER.24H PO SCH (07:44)
[2017-03-19] MEDS: Tiotropium 18 MCG inhalation IH SCH (08:22)
--- NOTE | 2017-03-19 09:51 | Discharge Summary ---
Date of Encounter: 03/19/17 Time of Encounter: 09:48 - Discharge Diagnosis (1) Acute exacerbation of congestive heart failure Priority: Primary Status: Acute Qualifiers: Congestive heart failure type: combined Qualified Code(s): I50.43 - Acute on chronic combined systolic (congestive) and diastolic (congestive) heart failure (2) Elevated troponin Priority: Secondary Status: Acute (3) ALMA (acute kidney injury) Priority: Secondary Status: Acute (4) COPD (chronic obstructive pulmonary disease) Priority: Secondary Status: Acute Qualifiers: Qualified Code(s): J44.9 - Chronic obstructive pulmonary disease, unspecified (5) Diabetes mellitus type 2 in nonobese Priority: Secondary Status: Acute (6) CAD (coronary artery disease) Priority: Secondary Status: Chronic Qualifiers: Coronary Disease-Associated Artery/Lesion type: [place] artery [place] vs. transplanted heart: [place] heart Associated angina: without angina Qualified Code(s): I25.10 - Atherosclerotic heart disease of [place] coronary artery without angina pectoris (7) Atrial flutter Priority: Secondary Status: Chronic Qualifiers: Atrial flutter type: unspecified Qualified Code(s): I48.92 - Unspecified atrial flutter - Discharge Medications Home Medications: Amiodarone [Cordarone] 200 mg PO DAILY 03/16/17 [History] Aspirin Enteric Coated [Aspirin EC] 81 mg PO DAILY 03/16/17 [History] Atorvastatin [Lipitor] 40 mg PO HS 03/16/17 [History] Furosemide [Lasix] 40 mg PO BID 03/16/17 [History] Losartan Potassium [Cozaar] 100 mg PO DAILY 03/16/17 [History] Melatonin/Pyridoxine HCl (B6) [Melatonin 3 mg Tablet] 3 mg PO HS 03/16/17 [ History] Methocarbamol [Robaxin] 500 mg PO TID 03/16/17 [History] Metoprolol [Lopressor] 75 mg PO BID 03/16/17 [History] Oxycodone HCl/Acetaminophen [Percocet 7.5-325 mg Tablet] 1 tab PO TID PRN [History] Pregabalin [Lyrica] 75 mg PO BID 03/16/17 [History] SitaGLIPtin [Januvia] 50 mg PO DAILY 03/16/17 [History] Spironolactone [Aldactone] 25 mg PO DAILY 03/16/17 [History] Tiotropium [Spiriva] 18 mcg IH DAILY 03/16/17 [History] glyBURIDE [GlyBURIDE] 2.5 mg PO BIDWM 03/16/17 [History] Allergies/Adverse Reactions: 3 Allergy/AdvReac Type Severity Reaction Status Date / Time Penicillins [PCN] AdvReac See Verified 03/16/17 08:00 Comments Date of admission: 03/16/17 13:55 Primary care physician: Missael Jameson, Discharging clinician: Jena Odom - Patient Status Disposition: Home, Self-Care Condition: Undetermined Functional capacity at discharge: independent ambulation - Discharge Instructions Follow Up With: Missael Jameson MD [Primary Care Provider] - - Diet and Activity Activity: increase activity as tolerated Diet: diabetic diet, low salt diet Interval History: Mr. Oates is a 61 year old male with a history of coronary artery disease status post cabbage, DM, COPD, Afib, and HF presented to the emergency room dyspnea with orthopnea and mild swelling of both lower extremities. For the past week the patient mentioned that his weight was 180 pounds and today 2 month later his weight is 200 pounds. Lasix dose has been recently increased a few months ago to 40 mg twice a day but not been compliant with his diet and eights excess salts. He denies fevers, chest pain, n/v. Admits to dry cough. A chest x-ray in ED showed pulmonary vascular congestion. Creatinine was elevated at 2.35, and his baseline is usually 1.2. Troponin was borderline 0.04. He was diuresed with Lasix 40 mg IV bid. Strict intake and output was measured. An echocardiogram was done showing LVEF of 50%, moderate pulmonary hypertention, and mild-moderate aortic stenosis. Cardiology was consulted for elevated troponin and acute heart failure, they agreed with continuing diuresis. Troponin were trended and they remained at 0.04-0.05. Clinically he improved and he did not have SOB any longer, lungs were clear and no longer had edema in legs. Creatinine was able to improve to 1.45, went up to 1.81 likely fluctuating here or new baseline. I did suggest he may stay another day to monitor renal function. Patient declined. He did qualify for home oxygen. On room air patient desaturates to 86%. Patient declined using O2, states he will go home without portable oxygen. He states he has oxygen at home and he will use it when he feels he needs to. He stated the first thing he does when he goes home will be to smoke cigarrettes. Patient was advised against not used supplemental O2, we also discussed smoking cessation. He was discharged home with instructions to get a repeat BMP done in 3 days. Patient agreed to this, he declined smoking cessation help. Prognosis is guarded since patient declines use of oxygen and is at 86% O2 on room air. He states he understands this puts him at risk for organ failure including OR and renal failure. Hospital course: Mr. Oates is a 61 year old male - Time Spent with Patient Total time spent providing and/or coordinating discharge services: - Constitutional Vitals: Temp Pulse Resp BP Pulse Ox 97.8 F 61 16 124/67 97 03/19/17 06:55 03/19/17 06:55 03/19/17 08:24 03/19/17 06:55 03/19/17 08:24 - Head Head exam: Present: atraumatic, normocephalic - Eye Eye exam: Present: PERRL, conjuntiva pink, sclera anicteric Pupils: Present: PERRL - Neck Neck exam general surgery: Present: supple, trachea midline. Absent: lymphadenopathy - Respiratory Respiratory exam: Present: CTAB. Absent: accessory muscle use, rales, rhonchi, wheezes - Cardiovascular Cardiovascular exam: Present: RRR, +S1, +S2. Absent: diastolic murmur, gallop, rubs, systolic murmur - GI/Abdominal GI/Abdominal exam: Present: normal bowel sounds, soft, no peritoneal signs. Absent: distended, tenderness - Extremities Exam Extremities exam: Present: warm, radial pulses palpable and symmetrical. Absent : calf tenderness, cyanotic, pedal edema - Neurological Exam Neurological exam: Present: CN II-XII intact, oriented X3, no focal deficits. Absent: pronater drift, facial droop, speech deficit - Skin Skin exam: Present: dry, intact
== END 2017-03-19 14:08 | disposition home or self-care (01) | DRG 291 ==
LOC: 3ANU 06:06 → EMEROO 06:06 → 3ANU 12:03
PROVIDERS: ADMIT Student in an Organized Health Care Education/Training Program; ATTEND Student in an Organized Health Care Education/Training Program

== ENCOUNTER 2017-08-13 11:02 | Inpatient (IN) ==
[2017-08-13] MEDS ORDERED: 0.9 % Sodium Chloride 1,000 ML IVC ONE (11:29)
[2017-08-13] MEDS ORDERED: methylPREDNISolone 125 MG/2 ML VIAL IVP ONE (11:33)
[2017-08-13] MEDS ORDERED: Ipratropium/Albuterol Neb 3 ML IH ONE (11:33)
--- NOTE | 2017-08-13 12:01 | Emergency Department Note ---
Disposition Clinical Impression: COPD with acute exacerbation, Hypercarbia, Acute respiratory acidosis Disposition: Admitted As Inpatient Condition: Fair Referrals: Missael Jameson MD [Primary Care Provider] - Forms: ED Satisfaction Letter Time of Disposition: 14:29 General Adult HPI - General Chief complaint: ED Neuro Symptoms/Deficit Stated complaint: neuro symptoms Time Seen by Provider: 08/13/17 11:18 Source: patient, family Limitations: no limitations - History of Present Illness Pain Scale: 0 - Related Data Home Medications Medication Instructions Recorded Confirmed Atorvastatin [Lipitor] 40 mg PO HS 08/13/17 08/13/17 Furosemide [Lasix] 40 mg PO BID 08/13/17 08/13/17 Ibuprofen [Ibu] 400 mg PO BID 08/13/17 08/13/17 Melatonin 1 mg PO HS 08/13/17 08/13/17 Pregabalin [Lyrica] 150 mg PO BID 08/13/17 08/13/17 glyBURIDE [GlyBURIDE] 10 mg PO BID 08/13/17 08/13/17 Allergies Allergy/AdvReac Type Severity Reaction Status Date / Time Penicillins [PCN] AdvReac See Verified 03/16/17 08:00 Comments Past Medical History - Past Medical History Medical history: Reports: CHF, COPD, diabetes, hyperlipidemia, hypertension, myocardial infarction Surgical history: Reports: coronary bypass (CABG) (3 vessel) Psychiatric history: Reports: no psych history - Social History Smoking Status: Current every day smoker Smokeless Tobacco Status: No Alcohol use: Reports: none Drug use: Reports: none Physical Exam - General Limitations: no limitations General appearance: alert, in no apparent distress Course Vital Signs Temperature 98.6 F 08/13/17 11:04 Pulse Rate 71 08/13/17 11:04 Respiratory Rate 20 08/13/17 11:04 Blood Pressure 102/56 08/13/17 11:04 O2 Sat by Pulse Oximetry 77 08/13/17 11:04 Temperature 98.6 F 08/13/17 11:04 Pulse Rate 71 08/13/17 11:04 Respiratory Rate 18 08/13/17 12:04 Blood Pressure 102/56 08/13/17 11:04 O2 Sat by Pulse Oximetry 93 08/13/17 12:04 Oxygen Delivery Oxygen Delivery Room Air Medical Decision Making - Lab Data Result diagrams: 08/13/17 12:07 08/13/17 12:07 Lab Results 08/13/17 08/13/17 08/13/17 Range/Units 11:08 11:08 12:07 WBC 11.2 H (4.3-11.1) K/mcL RBC 4.76 (4.19-5.50) M/mcL Hgb 10.1 L (12.9-16.9) g/dL Hct 34.7 L (37.5-50.1) % MCV 72.9 L (83.0-100.0) fL MCH 21.2 L (28.0-33.3) pg MCHC 29.1 L (31.6-35.5) g/dL RDW 18.2 H (11.5-14.5) % Plt Count 180 (140-400) K/mcL MPV 11.4 (9.4-12.4) fL Immature Gran % 0.4 (0-4) % Seg Neutrophils % 87.6 % Lymphocytes % 3.0 % Monocytes % 8.5 % Eosinophils % 0.2 % Basophils % 0.3 % Neutrophils # 9.8 H (1.6-8.9) K/mcL Lymphocytes # 0.3 L (0.6-4.6) K/mcL Monocytes # 1.0 (0.0-1.3) K/mcL Eosinophils # 0.0 (0.0-0.6) K/mcL Basophils # 0.0 (0.0-0.2) K/mcL Platelet Estimate Normal (Normal) Hypochromasia Present A (Not Present) PT (9.4-12.1) Seconds INR APTT (26.0-36.0) Seconds VBG pH (7.32-7.42) pH Units VBG pCO2 (41-51) mmHg VBG pO2 (25-50) mmHg VBG HCO3 (21-27) mEq/L Sodium (136-145) mEq/L Potassium (3.5-5.1) mEq/L Chloride (98-107) mEq/L Carbon Dioxide (23-29) mEq/L BUN (8-23) mg/dL Creatinine (0.70-1.30) mg/dL Est GFR ( Amer) (> 60) Est GFR (Non-Af Amer) (> 60) BUN/Creatinine Ratio (6-26) Glucose (70-105) mg/dL POC Glucose 322 H 334 H (70-99) mg/dL Calculated Osmolality (280-300) Lactic Acid (0.5-2.2) mmol/L Calcium (8.6-10.3) mg/dL Total Bilirubin (0.3-1.0) mg/dL Direct Bilirubin (0.0-0.2) mg/dL Indirect Bilirubin (0.0-1.2) mg/dL AST (13-39) Units/L ALT (7-52) Units/L Alkaline Phosphatase (34-104) Units/L Ammonia (16-53) mcmol/L Creatine Kinase (30-223) Units/L Troponin I (< 0.04) ng/mL B-Natriuretic Peptide (Less than 100) pg/mL Serum Total Protein (6.4-8.9) g/dL Albumin (3.5-5.7) g/dL Globulin (2.4-3.5) g/dL Albumin/Globulin Ratio (1.1-2.2) Beta-Hydroxybutyric Acd (0.02-0.27) mmol/L TSH (0.340-5.600) mcIU/mL Ethyl Alcohol (Less than 10) mg/dL Specimen Rejected Person Notif of Crit 08/13/17 08/13/17 08/13/17 Range/Units 12:07 12:07 12:07 WBC (4.3-11.1) K/mcL RBC (4.19-5.50) M/mcL Hgb (12.9-16.9) g/dL Hct (37.5-50.1) % MCV (83.0-100.0) fL MCH (28.0-33.3) pg MCHC (31.6-35.5) g/dL RDW (11.5-14.5) % Plt Count (140-400) K/mcL MPV (9.4-12.4) fL Immature Gran % (0-4) % Seg Neutrophils % % Lymphocytes % % Monocytes % % Eosinophils % % Basophils % % Neutrophils # (1.6-8.9) K/mcL Lymphocytes # (0.6-4.6) K/mcL Monocytes # (0.0-1.3) K/mcL Eosinophils # (0.0-0.6) K/mcL Basophils # (0.0-0.2) K/mcL Platelet Estimate (Normal) Hypochromasia (Not Present) PT 11.2 (9.4-12.1) Seconds INR 1.0 APTT 32.6 (26.0-36.0) Seconds VBG pH (7.32-7.42) pH Units VBG pCO2 (41-51) mmHg VBG pO2 (25-50) mmHg VBG HCO3 (21-27) mEq/L Sodium 135 L (136-145) mEq/L Potassium 5.0 (3.5-5.1) mEq/L Chloride 98 (98-107) mEq/L Carbon Dioxide 29 (23-29) mEq/L BUN 47 H (8-23) mg/dL Creatinine 1.95 H (0.70-1.30) mg/dL Est GFR ( Amer) 43 L (> 60) Est GFR (Non-Af Amer) 35 L (> 60) BUN/Creatinine Ratio 24 (6-26) Glucose 305 H (70-105) mg/dL POC Glucose (70-99) mg/dL Calculated Osmolality 304 H (280-300) Lactic Acid 0.8 (0.5-2.2) mmol/L Calcium 9.2 (8.6-10.3) mg/dL Total Bilirubin 0.5 (0.3-1.0) mg/dL Direct Bilirubin 0.1 (0.0-0.2) mg/dL Indirect Bilirubin 0.4 (0.0-1.2) mg/dL AST 13 (13-39) Units/L ALT 12 (7-52) Units/L Alkaline Phosphatase 97 (34-104) Units/L Ammonia (16-53) mcmol/L Creatine Kinase 129 (30-223) Units/L Troponin I < 0.03 (< 0.04) ng/mL B-Natriuretic Peptide (Less than 100) pg/mL Serum Total Protein 7.5 (6.4-8.9) g/dL Albumin 4.0 (3.5-5.7) g/dL Globulin 3.5 (2.4-3.5) g/dL Albumin/Globulin Ratio 1.1 (1.1-2.2) Beta-Hydroxybutyric Acd (0.02-0.27) mmol/L TSH 0.847 (0.340-5.600) mcIU/mL Ethyl Alcohol < 10 (Less than 10) mg/dL Specimen Rejected Person Notif of Crit 08/13/17 08/13/17 08/13/17 Range/Units 12:07 12:07 12:22 WBC (4.3-11.1) K/mcL RBC (4.19-5.50) M/mcL Hgb (12.9-16.9) g/dL Hct (37.5-50.1) % MCV (83.0-100.0) fL MCH (28.0-33.3) pg MCHC (31.6-35.5) g/dL RDW (11.5-14.5) % Plt Count (140-400) K/mcL MPV (9.4-12.4) fL Immature Gran % (0-4) % Seg Neutrophils % % Lymphocytes % % Monocytes % % Eosinophils % % Basophils % % Neutrophils # (1.6-8.9) K/mcL Lymphocytes # (0.6-4.6) K/mcL Monocytes # (0.0-1.3) K/mcL Eosinophils # (0.0-0.6) K/mcL Basophils # (0.0-0.2) K/mcL Platelet Estimate (Normal) Hypochromasia (Not Present) PT (9.4-12.1) Seconds INR APTT (26.0-36.0) Seconds VBG pH 7.26 L (7.32-7.42) pH Units VBG pCO2 72 H* (41-51) mmHg VBG pO2 50 (25-50) mmHg VBG HCO3 32 H (21-27) mEq/L Sodium (136-145) mEq/L Potassium (3.5-5.1) mEq/L Chloride (98-107) mEq/L Carbon Dioxide (23-29) mEq/L BUN (8-23) mg/dL Creatinine (0.70-1.30) mg/dL Est GFR ( Amer) (> 60) Est GFR (Non-Af Amer) (> 60) BUN/Creatinine Ratio (6-26) Glucose (70-105) mg/dL POC Glucose (70-99) mg/dL Calculated Osmolality (280-300) Lactic Acid (0.5-2.2) mmol/L Calcium (8.6-10.3) mg/dL Total Bilirubin (0.3-1.0) mg/dL Direct Bilirubin (0.0-0.2) mg/dL Indirect Bilirubin (0.0-1.2) mg/dL AST (13-39) Units/L ALT (7-52) Units/L Alkaline Phosphatase (34-104) Units/L Ammonia (16-53) mcmol/L Creatine Kinase (30-223) Units/L Troponin I (< 0.04) ng/mL B-Natriuretic Peptide (Less than 100) pg/mL Serum Total Protein (6.4-8.9) g/dL Albumin (3.5-5.7) g/dL Globulin (2.4-3.5) g/dL Albumin/Globulin Ratio (1.1-2.2) Beta-Hydroxybutyric Acd 0.14 (0.02-0.27) mmol/L TSH (0.340-5.600) mcIU/mL Ethyl Alcohol (Less than 10) mg/dL Specimen Rejected Accident Person Notif of Erik Calderón 08/13/17 08/13/17 Range/Units 13:04 13:04 WBC (4.3-11.1) K/mcL RBC (4.19-5.50) M/mcL Hgb (12.9-16.9) g/dL Hct (37.5-50.1) % MCV (83.0-100.0) fL MCH (28.0-33.3) pg MCHC (31.6-35.5) g/dL RDW (11.5-14.5) % Plt Count (140-400) K/mcL MPV (9.4-12.4) fL Immature Gran % (0-4) % Seg Neutrophils % % Lymphocytes % % Monocytes % % Eosinophils % % Basophils % % Neutrophils # (1.6-8.9) K/mcL Lymphocytes # (0.6-4.6) K/mcL Monocytes # (0.0-1.3) K/mcL Eosinophils # (0.0-0.6) K/mcL Basophils # (0.0-0.2) K/mcL Platelet Estimate (Normal) Hypochromasia (Not Present) PT (9.4-12.1) Seconds INR APTT (26.0-36.0) Seconds VBG pH (7.32-7.42) pH Units VBG pCO2 (41-51) mmHg VBG pO2 (25-50) mmHg VBG HCO3 (21-27) mEq/L Sodium (136-145) mEq/L Potassium (3.5-5.1) mEq/L Chloride (98-107) mEq/L Carbon Dioxide (23-29) mEq/L BUN (8-23) mg/dL Creatinine (0.70-1.30) mg/dL Est GFR ( Amer) (> 60) Est GFR (Non-Af Amer) (> 60) BUN/Creatinine Ratio (6-26) Glucose (70-105) mg/dL POC Glucose (70-99) mg/dL Calculated Osmolality (280-300) Lactic Acid (0.5-2.2) mmol/L Calcium (8.6-10.3) mg/dL Total Bilirubin (0.3-1.0) mg/dL Direct Bilirubin (0.0-0.2) mg/dL Indirect Bilirubin (0.0-1.2) mg/dL AST (13-39) Units/L ALT (7-52) Units/L Alkaline Phosphatase (34-104) Units/L Ammonia 28 (16-53) mcmol/L Creatine Kinase (30-223) Units/L Troponin I (< 0.04) ng/mL B-Natriuretic Peptide 699 H (Less than 100) pg/mL Serum Total Protein (6.4-8.9) g/dL Albumin (3.5-5.7) g/dL Globulin (2.4-3.5) g/dL Albumin/Globulin Ratio (1.1-2.2) Beta-Hydroxybutyric Acd (0.02-0.27) mmol/L TSH (0.340-5.600) mcIU/mL Ethyl Alcohol (Less than 10) mg/dL Specimen Rejected Person Notif of Crit Attestation Statement - Attestation Attestation: I, Mehdi Zaragoza DO, examined this patient [id number] and my medical decision-making was reviewed with Dr. Dominick Alicea, Resident Physician. I agree with the documented findings, disposition and treatment plan as described except to the extent set forth below. Please see my progress notes for details. 62-year-old male presents to emergency room for evaluation of confusion, weakness, generalized malaise that was present when he woke up this morning. Patient has been feeling ill last several days. Typically a COPD but does not wear oxygen at home because he does not like to. Left-sided felt like he needed but his oxygen on. When he woke up this morning and some difficulty with walking confusion and difficulty with use of his left upper extremity. Patient does not have a history of stroke he does have a history of cardiac arrhythmia that required ablation. He was previously on Xarelto but was stopped on the medication secondary to GI bleed. Currently denying chest pain shortness of breath headache vision changes. Denies any headache, fevers, chills. No other acute complaints or issues at this time. Patient has been falling more frequently at home. He does have multiple areas of skin abrasion and some small skin avulsions on the skin over the extremities. There is no visible signs of gross deformity of this point. Tetanus will be updated. Physical exam does appear to be relatively unremarkable outside of pulmonary evaluation. Patient does not have any significant neurologic deficits. Cranial nerves II through XII are grossly intact his pupils appear to be reactive his extraocular muscles are intact she speaks in full sentences. He does not appear to be confused. Oromucosa is patent lungs are diminished bilaterally with wheezing and intermittent coarse crackles. Heart is regular. Abdomen is soft but slightly distended no significant guarding or rigidity or peritoneal symptoms. No pulsatile masses or lesions noted. No rashes or lesions noted across the torso or abdomen. Patient has normal pulses in the radial DP PT distributions and no signs of pitting edema. He has no acute signs of ataxia no cerebellar function issues at this time. Patient's symptoms are not consistent with a stroke at this point considering the timeframe the presentation and the issues. Patient was symptomatically control completed here in the emergency room along with evaluation for strokelike issues include a CT the head chest x-ray breathing treatments steroids MIs as needed. ABG labs including CBC chemistry troponin and BNP blood cultures urinalysis and magnesium will be added on this time. Disposition pending the full workup treatment course and evaluation. Detailed documentation of the physical exam, medical intervention, medical decision-making and disposition. No critical care provider the patient's treatment course at this time 1345 Chest x-ray shows pulmonary congestion versus interstitial edema. Patient does have a slightly elevated BNP. Has been much worse in the past. Patient has slightly hypercarbic with what appears to be respiratory acidosis. His mental status is at baseline patient does have some increased work of breathing. BiPAP will be applied as needed. CT the head is unremarkable. The remainder of his labs show slightly elevated white blood cell count. Antibiotic regimen will be started at this time and admission process will be completed. Patient will have 40 mg of Lasix provided at this time. We reviewed his creatinine and that is about his baseline at this time. There is low risk with a single dose of Lasix despite his renal insufficiency. BiPAP was ordered this study patient will tolerate it. VBG will be collected to review his acid base balance at this point considering the respiratory issues. Disposition will be admission once the remainder the workup is completed. Hospitalist was contacted for admission. No other recommendations or concerns at this time. Patient will be admitted for definitive management. Patient is somnolent but wakes up to sternal rub. He answers questions appropriately immediately after and is still protecting his airway. BiPAP to be applied. Admission process to be completed no critical care applied to the patient's treatment course at this time
--- NOTE | 2017-08-13 12:13 | Emergency Department Note ---
Disposition Clinical Impression: COPD with acute exacerbation, Hypercarbia, Acute respiratory acidosis, Acute respiratory failure with hypoxia Aspiration pneumonia Qualifiers: Aspiration pneumonia type: unspecified Laterality: bilateral Lung location: unspecified part of lung Qualified Code(s): J69.0 - Pneumonitis due to inhalation of food and vomit Disposition: Admitted As Inpatient Condition: Serious Referrals: Missael Jameson MD [Primary Care Provider] - Forms: ED Satisfaction Letter Time of Disposition: 14:35 General Adult HPI - General Chief complaint: ED Neuro Symptoms/Deficit Stated complaint: neuro symptoms Time Seen by Provider: 08/13/17 11:18 Source: patient, family Limitations: no limitations Nursing Notes Reviewed: Yes Vital Signs Reviewed: Yes - History of Present Illness HPI Narrative: 62-year-old male history of ICD, cardiomyopathy, atrial fibrillation, hypertension, hyperlipidemia, diabetes, who presents with an episode of decreased Responsiveness, per His Family, He Had Multiple Falls This Morning, He Has Been Feeling Well for 2-3 Days. He Was Recently Hospitalized A Few Months Ago for Pneumonia. He States He Has Been Unable to Walk and Been Unsteady on His Feet, He Denies Any Weakness on One Side of His Body Facial Droop or Slurred Speech. The States That He Just Could Not Walk around Very Well Today. The Patient's Denies Fevers Chills Chest Pain Abdominal Pain or Headache. Onset (ago): day(s) (3) Pain Severity: mild Pain Scale: 0 Improves with: nothing Worsens with: nothing Associated symptoms: Reports: confusion, weakness. Denies: chest pain, cough, fever/chills, headaches, loss of appetite, malaise, nausea/vomiting, shortness of breath - Related Data Home Medications Medication Instructions Recorded Confirmed Atorvastatin [Lipitor] 40 mg PO HS 08/13/17 08/13/17 Furosemide [Lasix] 40 mg PO BID 08/13/17 08/13/17 Ibuprofen [Ibu] 400 mg PO BID 08/13/17 08/13/17 Melatonin 1 mg PO HS 08/13/17 08/13/17 Pregabalin [Lyrica] 150 mg PO BID 08/13/17 08/13/17 glyBURIDE [GlyBURIDE] 10 mg PO BID 08/13/17 08/13/17 Allergies Allergy/AdvReac Type Severity Reaction Status Date / Time Penicillins [PCN] AdvReac See Verified 03/16/17 08:00 Comments All systems ED: reviewed and negative except as stated. Review of Systems: As Per HPI Constitutional: Reports: weakness. Denies: fever, chills Eyes: Denies: eye pain ENT ED: Denies: ear pain Cardiovascular: Denies: chest pain, palpitations Respiratory: Denies: cough, dyspnea Gastrointestinal: Denies: abdominal pain, nausea Genitourinary: Denies: urgency Musculoskeletal: Denies: back pain, neck pain Integumentary: Denies: rash Neurological: Reports: as per HPI, weakness, abnormal gait. Denies: headache, numbness, paresthesias Past Medical History - Past Medical History Attestation: Yes The following information was validated with the patient. Source: patient Medical history: Reports: CHF, COPD, diabetes, hyperlipidemia, hypertension, myocardial infarction Surgical history: Reports: coronary bypass (CABG) (3 vessel) Psychiatric history: Reports: no psych history - Social History Smoking Status: Current every day smoker Smokeless Tobacco Status: No Alcohol use: Reports: none Drug use: Reports: none Physical Exam Constitutional: Patient appears somewhat disheveled. NAD Eyes: PERRLA, sclera anicteric ENT & Mouth: MM dry Neck: normal inspection, neck is supple Resp: Scattered wheezes bilaterally, some rhonchi at the base of the right. CV: RRR, no m/g/r GI: normal inspection, soft, no guarding or rigidity Neuro: A&O3, CNII-XII grossly intact, METCALF, cerebellar testing within normal limits, patient is a fine baseline tremor. Skin: on limited exam, skin intact with no rashes or lesions - General Limitations: no limitations General appearance: alert, in no apparent distress Course Course Narrative: 62-year-old male had presented with difficult walking, generalized weakness, concerns and differential includes CVA, PR, infectious versus metabolic arrangement, the patient has no acute findings of stroke and has been having symptoms of 2 for 2-3 days is no focal or lateralizing deficits, but this is still on the differential so we will get a CT scan, also EKG CBC BMP blood cultures lactate I will suspect that given that he has previously needed oxygen he has been requiring oxygen night he started using it, I suspect that he may be hypercarbic and hypoxic, his initial sat was 74%. Will do nebs as well and a slightly Medrol treatment for COPD exacerbation - Reevaluation(s) Reevaluation #1: Patient with evidence of hypercarbia, and was placed on BiPAP, ABG recheck showed that he still acidemic and with respiratory acidosis and hyper, he will be a candidate for to North or ICU stepdown, I spoke with the hospitalist Dr. Magana agreed to admit this time also covering for healthcare associated or aspiration pneumonia given that he has been unresponsive with multiple falls recently and he has had a productive cough, currently with thanks Zosyn and Levaquin, also given a small dose of diuretic and the patient is to be placed on BiPAP this time is hemodynamically stable resting comfortable in the bedside. He is in serious but stable condition. Time: 14:35 Vital Signs Temperature 98.6 F 08/13/17 11:04 Pulse Rate 71 08/13/17 11:04 Respiratory Rate 20 08/13/17 11:04 Blood Pressure 102/56 08/13/17 11:04 O2 Sat by Pulse Oximetry 77 08/13/17 11:04 Temperature 98.6 F 08/13/17 11:04 Pulse Rate 70 08/13/17 15:23 Respiratory Rate 18 08/13/17 15:23 Blood Pressure 106/58 08/13/17 15:23 O2 Sat by Pulse Oximetry 98 08/13/17 15:23 Oxygen Delivery Oxygen Delivery Nasal Cannula Medical Decision Making - MDM Narrative Medical decision making narrative: 62-year male with altered mental state, likely due to acute respiratory failure hypercapnic and his recheck was mildly acidemic 7.28 with a PCO2 of 68 on his ABG patient was still somnolent since placed on BiPAP is admitted to medicine service - Medical Records Medical records reviewed: Yes I reviewed the patient's medical records. - Lab Data Lab results reviewed: Yes I reviewed the patient's lab results. Result diagrams: 08/13/17 12:07 08/13/17 12:07 Lab Results 08/13/17 08/13/17 08/13/17 Range/Units 11:08 11:08 12:07 WBC 11.2 H (4.3-11.1) K/mcL RBC 4.76 (4.19-5.50) M/mcL Hgb 10.1 L (12.9-16.9) g/dL Hct 34.7 L (37.5-50.1) % MCV 72.9 L (83.0-100.0) fL MCH 21.2 L (28.0-33.3) pg MCHC 29.1 L (31.6-35.5) g/dL RDW 18.2 H (11.5-14.5) % Plt Count 180 (140-400) K/mcL MPV 11.4 (9.4-12.4) fL Immature Gran % 0.4 (0-4) % Seg Neutrophils % 87.6 % Lymphocytes % 3.0 % Monocytes % 8.5 % Eosinophils % 0.2 % Basophils % 0.3 % Neutrophils # 9.8 H (1.6-8.9) K/mcL Lymphocytes # 0.3 L (0.6-4.6) K/mcL Monocytes # 1.0 (0.0-1.3) K/mcL Eosinophils # 0.0 (0.0-0.6) K/mcL Basophils # 0.0 (0.0-0.2) K/mcL Platelet Estimate Normal (Normal) Hypochromasia Present A (Not Present) PT (9.4-12.1) Seconds INR APTT (26.0-36.0) Seconds Sample Site ABG pH (7.32-7.45) pH Units ABG pCO2 (35-45) mmHg ABG pO2 (85-104) mmHg ABG HCO3 (21-27) mEq/L ABG Total CO2 (20-26) mEq/L ABG O2 Saturation (95-98) % ABG Base Excess (-2 to 3) mEq/L VBG pH (7.32-7.42) pH Units VBG pCO2 (41-51) mmHg VBG pO2 (25-50) mmHg VBG HCO3 (21-27) mEq/L O2 Delivery Device Inspired O2 (1-15=lpm [id number]=%) Sodium (136-145) mEq/L Potassium (3.5-5.1) mEq/L Chloride (98-107) mEq/L Carbon Dioxide (23-29) mEq/L BUN (8-23) mg/dL Creatinine (0.70-1.30) mg/dL Est GFR ( Amer) (> 60) Est GFR (Non-Af Amer) (> 60) BUN/Creatinine Ratio (6-26) Glucose (70-105) mg/dL POC Glucose 322 H 334 H (70-99) mg/dL Calculated Osmolality (280-300) Lactic Acid (0.5-2.2) mmol/L Calcium (8.6-10.3) mg/dL Total Bilirubin (0.3-1.0) mg/dL Direct Bilirubin (0.0-0.2) mg/dL Indirect Bilirubin (0.0-1.2) mg/dL AST (13-39) Units/L ALT (7-52) Units/L Alkaline Phosphatase (34-104) Units/L Ammonia (16-53) mcmol/L Creatine Kinase (30-223) Units/L Troponin I (< 0.04) ng/mL B-Natriuretic Peptide (Less than 100) pg/mL Serum Total Protein (6.4-8.9) g/dL Albumin (3.5-5.7) g/dL Globulin (2.4-3.5) g/dL Albumin/Globulin Ratio (1.1-2.2) Beta-Hydroxybutyric Acd (0.02-0.27) mmol/L TSH (0.340-5.600) mcIU/mL Ethyl Alcohol (Less than 10) mg/dL Specimen Rejected Person Notif of Crit 08/13/17 08/13/17 08/13/17 Range/Units 12:07 12:07 12:07 WBC (4.3-11.1) K/mcL RBC (4.19-5.50) M/mcL Hgb (12.9-16.9) g/dL Hct (37.5-50.1) % MCV (83.0-100.0) fL MCH (28.0-33.3) pg MCHC (31.6-35.5) g/dL RDW (11.5-14.5) % Plt Count (140-400) K/mcL MPV (9.4-12.4) fL Immature Gran % (0-4) % Seg Neutrophils % % Lymphocytes % % Monocytes % % Eosinophils % % Basophils % % Neutrophils # (1.6-8.9) K/mcL Lymphocytes # (0.6-4.6) K/mcL Monocytes # (0.0-1.3) K/mcL Eosinophils # (0.0-0.6) K/mcL Basophils # (0.0-0.2) K/mcL Platelet Estimate (Normal) Hypochromasia (Not Present) PT 11.2 (9.4-12.1) Seconds INR 1.0 APTT 32.6 (26.0-36.0) Seconds Sample Site ABG pH (7.32-7.45) pH Units ABG pCO2 (35-45) mmHg ABG pO2 (85-104) mmHg ABG HCO3 (21-27) mEq/L ABG Total CO2 (20-26) mEq/L ABG O2 Saturation (95-98) % ABG Base Excess (-2 to 3) mEq/L VBG pH (7.32-7.42) pH Units VBG pCO2 (41-51) mmHg VBG pO2 (25-50) mmHg VBG HCO3 (21-27) mEq/L O2 Delivery Device Inspired O2 (1-15=lpm [id number]=%) Sodium 135 L (136-145) mEq/L Potassium 5.0 (3.5-5.1) mEq/L Chloride 98 (98-107) mEq/L Carbon Dioxide 29 (23-29) mEq/L BUN 47 H (8-23) mg/dL Creatinine 1.95 H (0.70-1.30) mg/dL Est GFR ( Amer) 43 L (> 60) Est GFR (Non-Af Amer) 35 L (> 60) BUN/Creatinine Ratio 24 (6-26) Glucose 305 H (70-105) mg/dL POC Glucose (70-99) mg/dL Calculated Osmolality 304 H (280-300) Lactic Acid 0.8 (0.5-2.2) mmol/L Calcium 9.2 (8.6-10.3) mg/dL Total Bilirubin 0.5 (0.3-1.0) mg/dL Direct Bilirubin 0.1 (0.0-0.2) mg/dL Indirect Bilirubin 0.4 (0.0-1.2) mg/dL AST 13 (13-39) Units/L ALT 12 (7-52) Units/L Alkaline Phosphatase 97 (34-104) Units/L Ammonia (16-53) mcmol/L Creatine Kinase 129 (30-223) Units/L Troponin I < 0.03 (< 0.04) ng/mL B-Natriuretic Peptide (Less than 100) pg/mL Serum Total Protein 7.5 (6.4-8.9) g/dL Albumin 4.0 (3.5-5.7) g/dL Globulin 3.5 (2.4-3.5) g/dL Albumin/Globulin Ratio 1.1 (1.1-2.2) Beta-Hydroxybutyric Acd (0.02-0.27) mmol/L TSH 0.847 (0.340-5.600) mcIU/mL Ethyl Alcohol < 10 (Less than 10) mg/dL Specimen Rejected Person Notif of Crit 08/13/17 08/13/17 08/13/17 Range/Units 12:07 12:07 12:22 WBC (4.3-11.1) K/mcL RBC (4.19-5.50) M/mcL Hgb (12.9-16.9) g/dL Hct (37.5-50.1) % MCV (83.0-100.0) fL MCH (28.0-33.3) pg MCHC (31.6-35.5) g/dL RDW (11.5-14.5) % Plt Count (140-400) K/mcL MPV (9.4-12.4) fL Immature Gran % (0-4) % Seg Neutrophils % % Lymphocytes % % Monocytes % % Eosinophils % % Basophils % % Neutrophils # (1.6-8.9) K/mcL Lymphocytes # (0.6-4.6) K/mcL Monocytes # (0.0-1.3) K/mcL Eosinophils # (0.0-0.6) K/mcL Basophils # (0.0-0.2) K/mcL Platelet Estimate (Normal) Hypochromasia (Not Present) PT (9.4-12.1) Seconds INR APTT (26.0-36.0) Seconds Sample Site ABG pH (7.32-7.45) pH Units ABG pCO2 (35-45) mmHg ABG pO2 (85-104) mmHg ABG HCO3 (21-27) mEq/L ABG Total CO2 (20-26) mEq/L ABG O2 Saturation (95-98) % ABG Base Excess (-2 to 3) mEq/L VBG pH 7.26 L (7.32-7.42) pH Units VBG pCO2 72 H* (41-51) mmHg VBG pO2 50 (25-50) mmHg VBG HCO3 32 H (21-27) mEq/L O2 Delivery Device Inspired O2 (1-15=lpm [id number]=%) Sodium (136-145) mEq/L Potassium (3.5-5.1) mEq/L Chloride (98-107) mEq/L Carbon Dioxide (23-29) mEq/L BUN (8-23) mg/dL Creatinine (0.70-1.30) mg/dL Est GFR ( Amer) (> 60) Est GFR (Non-Af Amer) (> 60) BUN/Creatinine Ratio (6-26) Glucose (70-105) mg/dL POC Glucose (70-99) mg/dL Calculated Osmolality (280-300) Lactic Acid (0.5-2.2) mmol/L Calcium (8.6-10.3) mg/dL Total Bilirubin (0.3-1.0) mg/dL Direct Bilirubin (0.0-0.2) mg/dL Indirect Bilirubin (0.0-1.2) mg/dL AST (13-39) Units/L ALT (7-52) Units/L Alkaline Phosphatase (34-104) Units/L Ammonia (16-53) mcmol/L Creatine Kinase (30-223) Units/L Troponin I (< 0.04) ng/mL B-Natriuretic Peptide (Less than 100) pg/mL Serum Total Protein (6.4-8.9) g/dL Albumin (3.5-5.7) g/dL Globulin (2.4-3.5) g/dL Albumin/Globulin Ratio (1.1-2.2) Beta-Hydroxybutyric Acd 0.14 (0.02-0.27) mmol/L TSH (0.340-5.600) mcIU/mL Ethyl Alcohol (Less than 10) mg/dL Specimen Rejected Accident Person Notif of Erik Calderón 08/13/17 08/13/17 08/13/17 Range/Units 13:04 13:04 14:13 WBC (4.3-11.1) K/mcL RBC (4.19-5.50) M/mcL Hgb (12.9-16.9) g/dL Hct (37.5-50.1) % MCV (83.0-100.0) fL MCH (28.0-33.3) pg MCHC (31.6-35.5) g/dL RDW (11.5-14.5) % Plt Count (140-400) K/mcL MPV (9.4-12.4) fL Immature Gran % (0-4) % Seg Neutrophils % % Lymphocytes % % Monocytes % % Eosinophils % % Basophils % % Neutrophils # (1.6-8.9) K/mcL Lymphocytes # (0.6-4.6) K/mcL Monocytes # (0.0-1.3) K/mcL Eosinophils # (0.0-0.6) K/mcL Basophils # (0.0-0.2) K/mcL Platelet Estimate (Normal) Hypochromasia (Not Present) PT (9.4-12.1) Seconds INR APTT (26.0-36.0) Seconds Sample Site ABG pH (7.32-7.45) pH Units ABG pCO2 (35-45) mmHg ABG pO2 (85-104) mmHg ABG HCO3 (21-27) mEq/L ABG Total CO2 (20-26) mEq/L ABG O2 Saturation (95-98) % ABG Base Excess (-2 to 3) mEq/L VBG pH 7.40 D (7.32-7.42) pH Units VBG pCO2 42 (41-51) mmHg VBG pO2 154 H (25-50) mmHg VBG HCO3 26 (21-27) mEq/L O2 Delivery Device Inspired O2 (1-15=lpm ox65-002=%) Sodium (136-145) mEq/L Potassium (3.5-5.1) mEq/L Chloride (98-107) mEq/L Carbon Dioxide (23-29) mEq/L BUN (8-23) mg/dL Creatinine (0.70-1.30) mg/dL Est GFR ( Amer) (> 60) Est GFR (Non-Af Amer) (> 60) BUN/Creatinine Ratio (6-26) Glucose (70-105) mg/dL POC Glucose (70-99) mg/dL Calculated Osmolality (280-300) Lactic Acid (0.5-2.2) mmol/L Calcium (8.6-10.3) mg/dL Total Bilirubin (0.3-1.0) mg/dL Direct Bilirubin (0.0-0.2) mg/dL Indirect Bilirubin (0.0-1.2) mg/dL AST (13-39) Units/L ALT (7-52) Units/L Alkaline Phosphatase (34-104) Units/L Ammonia 28 (16-53) mcmol/L Creatine Kinase (30-223) Units/L Troponin I (< 0.04) ng/mL B-Natriuretic Peptide 699 H (Less than 100) pg/mL Serum Total Protein (6.4-8.9) g/dL Albumin (3.5-5.7) g/dL Globulin (2.4-3.5) g/dL Albumin/Globulin Ratio (1.1-2.2) Beta-Hydroxybutyric Acd (0.02-0.27) mmol/L TSH (0.340-5.600) mcIU/mL Ethyl Alcohol (Less than 10) mg/dL Specimen Rejected Person Notif of Crit 08/13/17 Range/Units 14:21 WBC (4.3-11.1) K/mcL RBC (4.19-5.50) M/mcL Hgb (12.9-16.9) g/dL Hct (37.5-50.1) % MCV (83.0-100.0) fL MCH (28.0-33.3) pg MCHC (31.6-35.5) g/dL RDW (11.5-14.5) % Plt Count (140-400) K/mcL MPV (9.4-12.4) fL Immature Gran % (0-4) % Seg Neutrophils % % Lymphocytes % % Monocytes % % Eosinophils % % Basophils % % Neutrophils # (1.6-8.9) K/mcL Lymphocytes # (0.6-4.6) K/mcL Monocytes # (0.0-1.3) K/mcL Eosinophils # (0.0-0.6) K/mcL Basophils # (0.0-0.2) K/mcL Platelet Estimate (Normal) Hypochromasia (Not Present) PT (9.4-12.1) Seconds INR APTT (26.0-36.0) Seconds Sample Site R Radial ABG pH 7.28 L (7.32-7.45) pH Units ABG pCO2 67 H (35-45) mmHg ABG pO2 76 L (85-104) mmHg ABG HCO3 32 H (21-27) mEq/L ABG Total CO2 34 H (20-26) mEq/L ABG O2 Saturation 93 L (95-98) % ABG Base Excess 3 (-2 to 3) mEq/L VBG pH (7.32-7.42) pH Units VBG pCO2 (41-51) mmHg VBG pO2 (25-50) mmHg VBG HCO3 (21-27) mEq/L O2 Delivery Device Cannula Inspired O2 4.0 (1-15=lpm lp27-661=%) Sodium (136-145) mEq/L Potassium (3.5-5.1) mEq/L Chloride (98-107) mEq/L Carbon Dioxide (23-29) mEq/L BUN (8-23) mg/dL Creatinine (0.70-1.30) mg/dL Est GFR ( Amer) (> 60) Est GFR (Non-Af Amer) (> 60) BUN/Creatinine Ratio (6-26) Glucose (70-105) mg/dL POC Glucose (70-99) mg/dL Calculated Osmolality (280-300) Lactic Acid (0.5-2.2) mmol/L Calcium (8.6-10.3) mg/dL Total Bilirubin (0.3-1.0) mg/dL Direct Bilirubin (0.0-0.2) mg/dL Indirect Bilirubin (0.0-1.2) mg/dL AST (13-39) Units/L ALT (7-52) Units/L Alkaline Phosphatase (34-104) Units/L Ammonia (16-53) mcmol/L Creatine Kinase (30-223) Units/L Troponin I (< 0.04) ng/mL B-Natriuretic Peptide (Less than 100) pg/mL Serum Total Protein (6.4-8.9) g/dL Albumin (3.5-5.7) g/dL Globulin (2.4-3.5) g/dL Albumin/Globulin Ratio (1.1-2.2) Beta-Hydroxybutyric Acd (0.02-0.27) mmol/L TSH (0.340-5.600) mcIU/mL Ethyl Alcohol (Less than 10) mg/dL Specimen Rejected Person Notif of Crit - Radiology Data Radiology results reviewed: Yes I reviewed the patient's radiology results. Head CT 08/13/17 11:32 IMPRESSION: No acute intracranial abnormality. D/ / Thor Little MD / Thor Little MD Interpreting Provider: Thor Little MD - EKG Data EKG #1 EKG attestation: Yes I reviewed and interpreted this EKG. EKG shows normal: sinus rhythm Rate: normal Rhythm: NSR (Right bundle-branch block and ventricular rate of 65 AL-2 O2 QRS 149 QTC 447 no acute ischemic changes) [place]/QRS: normal Interpretation: no acute changes Attestation Statement - Attestation Attestation: I, Mehdi Zaragoza DO, examined this patient [id number] and my medical decision-making was reviewed with Dr. Dominick Alicea, Resident Physician. I agree with the documented findings, disposition and treatment plan as described except to the extent set forth below. Please see my progress notes for details.
[2017-08-13 12:24] LABS: Basophils % 0.3 %; Immature Granulocytes % 0.4 % (0-4); Monocytes % 8.5 %
[2017-08-13 12:26] LABS: Eosinophils % 0.2 %; Hematocrit 34.7 % (37.5-50.1); Hemoglobin 10.1 g/dL (12.9-16.9); Lymphocytes # 0.3 K/mcL (0.6-4.6); Mean Corpuscular HGB Conc 29.1 g/dL (31.6-35.5); Mean Corpuscular Hemoglobin 21.2 pg (28.0-33.3); Mean Corpuscular Volume 72.9 fL (83.0-100.0); Mean Platelet Volume 11.4 fL (9.4-12.4); Neutrophils # 9.8 K/mcL (1.6-8.9); Platelet Count 180 K/mcL (140-400); Red Blood Count 4.76 M/mcL (4.19-5.50); Red Cell Distribution Width 18.2 % (11.5-14.5); Segmented Neutrophils % 87.6 %
[2017-08-13 12:31] LABS: VBG HCO3 32 mEq/L (21-27); VBG PCO2 72 mmHg (41-51); VBG PH 7.26 pH Units (7.32-7.42); VBG PO2 50 mmHg (25-50)
[2017-08-13 12:32] LABS: Prothrombin Time 11.2 Seconds (9.4-12.1)
[2017-08-13 12:33] LABS: Activated Partial Thrombo Time 32.6 Seconds (26.0-36.0)
[2017-08-13 12:46] LABS: Troponin I < 0.03 ng/mL (< 0.04)
[2017-08-13 12:54] LABS: Alanine Aminotransferase 12 Units/L (7-52); Albumin/Globulin Ratio 1.1 (1.1-2.2); Alkaline Phosphatase 97 Units/L (34-104); Aspartate Amino Transferase 13 Units/L (13-39); BUN/Creatinine Ratio 24 (6-26); Bilirubin,Direct 0.1 mg/dL (0.0-0.2); Bilirubin,Indirect 0.4 mg/dL (0.0-1.2); Bilirubin,Total 0.5 mg/dL (0.3-1.0); Blood Urea Nitrogen 47 mg/dL (8-23); Calcium 9.2 mg/dL (8.6-10.3); Carbon Dioxide 29 mEq/L (23-29); Chloride 98 mEq/L (98-107); Creatine Kinase 129 Units/L (30-223); Ethanol < 10 mg/dL (Less than 10); Globulin 3.5 g/dL (2.4-3.5); Glucose 305 mg/dL (70-105); Osmolality,Calculated 304 (280-300); Sodium 135 mEq/L (136-145); Total Protein 7.5 g/dL (6.4-8.9); eGFR For African Americans 43 (> 60); eGFR For Non-African Americans 35 (> 60)
[2017-08-13 12:59] LABS: Thyroid Stimulating Hormone 0.847 mcIU/mL (0.340-5.600)
[2017-08-13 13:04] LABS: Hypochromasia Present (Not Present); Platelet Estimate Normal (Normal)
[2017-08-13] MEDS ORDERED: Vancomycin 1,000 MG VIAL IVPB ONE (13:11)
[2017-08-13] MEDS ORDERED: Levofloxacin 750 MG/150 ML 750 MG/150 ML BAG IVPB ONE (13:17)
[2017-08-13] MEDS ORDERED: Piperacillin/Tazobactam 3.375 GM in 0.9 % Sodium Chloride Mini Bag 100 ML IVPB ONE (13:17)
[2017-08-13] MEDS ORDERED: Furosemide 40 MG/4 ML VIAL IVP ONE (13:46)
[2017-08-13] MEDS ORDERED: Naloxone 0.4 MG/ML INJ IVP PRN (14:03)
[2017-08-13] MEDS ORDERED: Ipratropium/Albuterol Neb 3 ML IH PRN (14:05)
--- NOTE | 2017-08-13 14:10 | Internal Med History&Physical ---
Date of Encounter: 08/13/17 Time of Encounter: 14:08 Internal Medicine - H&P: HPI Chief complaint: SOB found confused History of present illness: Mr. Oates is a 62 year old male who presents with hypoxic respiratory failure 2/ 2 COPD, PNA , background diastolic CHF (TTE 03/2017 with intact LVEF) He lives at home and continues to smoke daily "smokes alot" unable to quantity. He was reported to have went to back at 4 a.m this morning. He woke up a few hours later at 6 pm approx to go to the bathroom. That's when he fell to the ground. Was found to be altered by family. He appears to have been describing some progressive SOB/resp symptoms in the past few days. On EMS eval, was found to be hypoxic to 70s on RA. EKG personally reviewed with rate 65, RBBB unchanged from prior CT/CT head/brain wo con IMPRESSION: No acute intracranial abnormality. XR/XR chest 1V portable IMPRESSION: Moderate airspace opacity left lung and right lung base along with some pulmonary vascular congestion. Differential diagnosis includes asymmetric pulmonary edema - congestive heart failure versus bilateral pneumonia. Past Med Surg Social Fam HX - Past Medical History Medical history: CHF, COPD, diabetes, hyperlipidemia, hypertension, myocardial infarction Psychiatric history: no psych history - Past Surgical History Surgical History: coronary bypass (CABG) (3 vessel) - Social History Smoking Status: Current every day smoker Smokeless Tobacco Status: No Alcohol use: none Drug use: none Internal Medicine - H&P: Meds Atorvastatin [Lipitor] 40 mg PO HS 08/13/17 [History] Furosemide [Lasix] 40 mg PO BID 08/13/17 [History] Ibuprofen [Ibu] 400 mg PO BID 08/13/17 [History] Melatonin 1 mg PO HS 08/13/17 [History] Pregabalin [Lyrica] 150 mg PO BID 08/13/17 [History] glyBURIDE [GlyBURIDE] 10 mg PO BID 08/13/17 [History] 3 Allergy/AdvReac Type Severity Reaction Status Date / Time Penicillins [PCN] AdvReac See Verified 03/16/17 08:00 Comments All Systems PM: A 10-system review of systems was performed and is negative for pertinent findings except as documented above in the HPI. Review of systems: ROS 14 point review of systems reviewed as best as possible given presentation. Pertinent positive or negative as per HPI or otherwise reviewed as negative - Constitutional Vitals: Temp Pulse Resp BP Pulse Ox 98.6 F 71 18 102/56 93 08/13/17 11:04 08/13/17 11:04 08/13/17 12:04 08/13/17 11:04 08/13/17 12:04 Exam: General - Somnolent Psych - Appropriate affect/speech. No agitation Eyes - WEI. Eye lids intact. No scleral icterus Heart - Sinus. RRR. S1 and S2 present. No added HS/murmurs appreciated. No elevated JVD appreciated. Lung - Adequate air entry b/l,diffuse rhochi and crackles midzone of lung appreciated GI - Soft, non-tender. No hepatosplenomegaly/ascites. BS+ - No CVA/suprapubic tenderness or palpable bladder distension Skin - Intact. No rash/petechiae/ecchymosis. Warm extremities Internal Med - H&P Results - Labs CBC & Chem 7: 08/13/17 12:07 08/13/17 12:07 Labs: Short CBC 08/13/17 08/13/17 08/13/17 Range/Units 11:08 11:08 12:07 WBC 11.2 H (4.3-11.1) K/mcL RBC 4.76 (4.19-5.50) M/mcL Hgb 10.1 L (12.9-16.9) g/dL Hct 34.7 L (37.5-50.1) % MCV 72.9 L (83.0-100.0) fL MCH 21.2 L (28.0-33.3) pg MCHC 29.1 L (31.6-35.5) g/dL RDW 18.2 H (11.5-14.5) % Plt Count 180 (140-400) K/mcL MPV 11.4 (9.4-12.4) fL Immature Gran % 0.4 (0-4) % Seg Neutrophils % 87.6 % Lymphocytes % 3.0 % Monocytes % 8.5 % Eosinophils % 0.2 % Basophils % 0.3 % Neutrophils # 9.8 H (1.6-8.9) K/mcL Lymphocytes # 0.3 L (0.6-4.6) K/mcL Monocytes # 1.0 (0.0-1.3) K/mcL Eosinophils # 0.0 (0.0-0.6) K/mcL Basophils # 0.0 (0.0-0.2) K/mcL Platelet Estimate Normal (Normal) Hypochromasia Present A (Not Present) PT (9.4-12.1) Seconds INR APTT (26.0-36.0) Seconds VBG pH (7.32-7.42) pH Units VBG pCO2 (41-51) mmHg VBG pO2 (25-50) mmHg VBG HCO3 (21-27) mEq/L Sodium (136-145) mEq/L Potassium (3.5-5.1) mEq/L Chloride (98-107) mEq/L Carbon Dioxide (23-29) mEq/L BUN (8-23) mg/dL Creatinine (0.70-1.30) mg/dL Est GFR ( Amer) (> 60) Est GFR (Non-Af Amer) (> 60) BUN/Creatinine Ratio (6-26) Glucose (70-105) mg/dL POC Glucose 322 H 334 H (70-99) mg/dL Calculated Osmolality (280-300) Lactic Acid (0.5-2.2) mmol/L Calcium (8.6-10.3) mg/dL Total Bilirubin (0.3-1.0) mg/dL Direct Bilirubin (0.0-0.2) mg/dL Indirect Bilirubin (0.0-1.2) mg/dL AST (13-39) Units/L ALT (7-52) Units/L Alkaline Phosphatase (34-104) Units/L Ammonia (16-53) mcmol/L Creatine Kinase (30-223) Units/L Troponin I (< 0.04) ng/mL B-Natriuretic Peptide (Less than 100) pg/mL Serum Total Protein (6.4-8.9) g/dL Albumin (3.5-5.7) g/dL Globulin (2.4-3.5) g/dL Albumin/Globulin Ratio (1.1-2.2) Beta-Hydroxybutyric Acd (0.02-0.27) mmol/L TSH (0.340-5.600) mcIU/mL Ethyl Alcohol (Less than 10) mg/dL Specimen Rejected Person Notif of Crit 08/13/17 08/13/17 08/13/17 Range/Units 12:07 12:07 12:07 WBC (4.3-11.1) K/mcL RBC (4.19-5.50) M/mcL Hgb (12.9-16.9) g/dL Hct (37.5-50.1) % MCV (83.0-100.0) fL MCH (28.0-33.3) pg MCHC (31.6-35.5) g/dL RDW (11.5-14.5) % Plt Count (140-400) K/mcL MPV (9.4-12.4) fL Immature Gran % (0-4) % Seg Neutrophils % % Lymphocytes % % Monocytes % % Eosinophils % % Basophils % % Neutrophils # (1.6-8.9) K/mcL Lymphocytes # (0.6-4.6) K/mcL Monocytes # (0.0-1.3) K/mcL Eosinophils # (0.0-0.6) K/mcL Basophils # (0.0-0.2) K/mcL Platelet Estimate (Normal) Hypochromasia (Not Present) PT 11.2 (9.4-12.1) Seconds INR 1.0 APTT 32.6 (26.0-36.0) Seconds VBG pH (7.32-7.42) pH Units VBG pCO2 (41-51) mmHg VBG pO2 (25-50) mmHg VBG HCO3 (21-27) mEq/L Sodium 135 L (136-145) mEq/L Potassium 5.0 (3.5-5.1) mEq/L Chloride 98 (98-107) mEq/L Carbon Dioxide 29 (23-29) mEq/L BUN 47 H (8-23) mg/dL Creatinine 1.95 H (0.70-1.30) mg/dL Est GFR ( Amer) 43 L (> 60) Est GFR (Non-Af Amer) 35 L (> 60) BUN/Creatinine Ratio 24 (6-26) Glucose 305 H (70-105) mg/dL POC Glucose (70-99) mg/dL Calculated Osmolality 304 H (280-300) Lactic Acid 0.8 (0.5-2.2) mmol/L Calcium 9.2 (8.6-10.3) mg/dL Total Bilirubin 0.5 (0.3-1.0) mg/dL Direct Bilirubin 0.1 (0.0-0.2) mg/dL Indirect Bilirubin 0.4 (0.0-1.2) mg/dL AST 13 (13-39) Units/L ALT 12 (7-52) Units/L Alkaline Phosphatase 97 (34-104) Units/L Ammonia (16-53) mcmol/L Creatine Kinase 129 (30-223) Units/L Troponin I < 0.03 (< 0.04) ng/mL B-Natriuretic Peptide (Less than 100) pg/mL Serum Total Protein 7.5 (6.4-8.9) g/dL Albumin 4.0 (3.5-5.7) g/dL Globulin 3.5 (2.4-3.5) g/dL Albumin/Globulin Ratio 1.1 (1.1-2.2) Beta-Hydroxybutyric Acd (0.02-0.27) mmol/L TSH 0.847 (0.340-5.600) mcIU/mL Ethyl Alcohol < 10 (Less than 10) mg/dL Specimen Rejected Person Notif of Crit 08/13/17 08/13/17 08/13/17 Range/Units 12:07 12:07 12:22 WBC (4.3-11.1) K/mcL RBC (4.19-5.50) M/mcL Hgb (12.9-16.9) g/dL Hct (37.5-50.1) % MCV (83.0-100.0) fL MCH (28.0-33.3) pg MCHC (31.6-35.5) g/dL RDW (11.5-14.5) % Plt Count (140-400) K/mcL MPV (9.4-12.4) fL Immature Gran % (0-4) % Seg Neutrophils % % Lymphocytes % % Monocytes % % Eosinophils % % Basophils % % Neutrophils # (1.6-8.9) K/mcL Lymphocytes # (0.6-4.6) K/mcL Monocytes # (0.0-1.3) K/mcL Eosinophils # (0.0-0.6) K/mcL Basophils # (0.0-0.2) K/mcL Platelet Estimate (Normal) Hypochromasia (Not Present) PT (9.4-12.1) Seconds INR APTT (26.0-36.0) Seconds VBG pH 7.26 L (7.32-7.42) pH Units VBG pCO2 72 H* (41-51) mmHg VBG pO2 50 (25-50) mmHg VBG HCO3 32 H (21-27) mEq/L Sodium (136-145) mEq/L Potassium (3.5-5.1) mEq/L Chloride (98-107) mEq/L Carbon Dioxide (23-29) mEq/L BUN (8-23) mg/dL Creatinine (0.70-1.30) mg/dL Est GFR ( Amer) (> 60) Est GFR (Non-Af Amer) (> 60) BUN/Creatinine Ratio (6-26) Glucose (70-105) mg/dL POC Glucose (70-99) mg/dL Calculated Osmolality (280-300) Lactic Acid (0.5-2.2) mmol/L Calcium (8.6-10.3) mg/dL Total Bilirubin (0.3-1.0) mg/dL Direct Bilirubin (0.0-0.2) mg/dL Indirect Bilirubin (0.0-1.2) mg/dL AST (13-39) Units/L ALT (7-52) Units/L Alkaline Phosphatase (34-104) Units/L Ammonia (16-53) mcmol/L Creatine Kinase (30-223) Units/L Troponin I (< 0.04) ng/mL B-Natriuretic Peptide (Less than 100) pg/mL Serum Total Protein (6.4-8.9) g/dL Albumin (3.5-5.7) g/dL Globulin (2.4-3.5) g/dL Albumin/Globulin Ratio (1.1-2.2) Beta-Hydroxybutyric Acd 0.14 (0.02-0.27) mmol/L TSH (0.340-5.600) mcIU/mL Ethyl Alcohol (Less than 10) mg/dL Specimen Rejected Accident Person Notif of Erik Calderón 06/04/18 06/04/18 Range/Units 13:04 13:04 WBC (4.3-11.1) K/mcL RBC (4.19-5.50) M/mcL Hgb (12.9-16.9) g/dL Hct (37.5-50.1) % MCV (83.0-100.0) fL MCH (28.0-33.3) pg MCHC (31.6-35.5) g/dL RDW (11.5-14.5) % Plt Count (140-400) K/mcL MPV (9.4-12.4) fL Immature Gran % (0-4) % Seg Neutrophils % % Lymphocytes % % Monocytes % % Eosinophils % % Basophils % % Neutrophils # (1.6-8.9) K/mcL Lymphocytes # (0.6-4.6) K/mcL Monocytes # (0.0-1.3) K/mcL Eosinophils # (0.0-0.6) K/mcL Basophils # (0.0-0.2) K/mcL Platelet Estimate (Normal) Hypochromasia (Not Present) PT (9.4-12.1) Seconds INR APTT (26.0-36.0) Seconds VBG pH (7.32-7.42) pH Units VBG pCO2 (41-51) mmHg VBG pO2 (25-50) mmHg VBG HCO3 (21-27) mEq/L Sodium (136-145) mEq/L Potassium (3.5-5.1) mEq/L Chloride (98-107) mEq/L Carbon Dioxide (23-29) mEq/L BUN (8-23) mg/dL Creatinine (0.70-1.30) mg/dL Est GFR ( Amer) (> 60) Est GFR (Non-Af Amer) (> 60) BUN/Creatinine Ratio (6-26) Glucose (70-105) mg/dL POC Glucose (70-99) mg/dL Calculated Osmolality (280-300) Lactic Acid (0.5-2.2) mmol/L Calcium (8.6-10.3) mg/dL Total Bilirubin (0.3-1.0) mg/dL Direct Bilirubin (0.0-0.2) mg/dL Indirect Bilirubin (0.0-1.2) mg/dL AST (13-39) Units/L ALT (7-52) Units/L Alkaline Phosphatase (34-104) Units/L Ammonia 28 (16-53) mcmol/L Creatine Kinase (30-223) Units/L Troponin I (< 0.04) ng/mL B-Natriuretic Peptide 699 H (Less than 100) pg/mL Serum Total Protein (6.4-8.9) g/dL Albumin (3.5-5.7) g/dL Globulin (2.4-3.5) g/dL Albumin/Globulin Ratio (1.1-2.2) Beta-Hydroxybutyric Acd (0.02-0.27) mmol/L TSH (0.340-5.600) mcIU/mL Ethyl Alcohol (Less than 10) mg/dL Specimen Rejected Person Notif of Crit BMP 08/13/17 12:07 Sodium 135 L Potassium 5.0 Chloride 98 Carbon Dioxide 29 BUN 47 H Creatinine 1.95 H Glucose 305 H Calcium 9.2 Cardiac Enzymes 08/13/17 Range/Units 12:07 Troponin I < 0.03 (< 0.04) ng/mL Liver Function 08/13/17 Range/Units 12:07 Total Bilirubin 0.5 (0.3-1.0) mg/dL Direct Bilirubin 0.1 (0.0-0.2) mg/dL AST 13 (13-39) Units/L ALT 12 (7-52) Units/L Alkaline Phosphatase 97 (34-104) Units/L Albumin 4.0 (3.5-5.7) g/dL - ABG Interpretation ABG results: 08/13/17 12:22 VBG pH 7.26 L VBG pCO2 72 H* VBG pO2 50 VBG HCO3 32 H - Impressions ITS Impressions Chest X-Ray 08/13/17 11:29 IMPRESSION: Moderate airspace opacity left lung and right lung base along with some pulmonary vascular congestion. Differential diagnosis includes asymmetric pulmonary edema - congestive heart failure versus bilateral pneumonia. D/ / Kevin Fonseca MD / Kevin Fonseca MD Interpreting Provider: Kevin Fonseca MD Head CT 08/13/17 11:32 IMPRESSION: No acute intracranial abnormality. D/ / Thor Little MD / Thor Little MD Interpreting Provider: Thor Little MD - Assessment and plan (1) Acute respiratory failure with hypoxia Current Visit: Yes Status: Acute Assessment and plan: 2/2 COPD, PNA treat COPD and PNA has acute on chronic hypoxia and hypercarbia BIPAP trial (2) COPD with acute exacerbation Current Visit: Yes Status: Acute Assessment and plan: IV steroids, duonebs, IV levaquin (3) PNA (pneumonia) Current Visit: Yes Status: Acute Assessment and plan: empiric levaquin IV send serologies Qualifiers: Pneumonia type: due to other aerobic Gram-negative bacteria Lung location: lower lobe of lung Qualified Code(s): J15.6 - Pneumonia due to other Gram- negative bacteria (4) Diabetes mellitus type 2 in nonobese Current Visit: No Status: Acute Assessment and plan: add ISS given NPO and high dose steroids hold oral med for now (5) Diastolic CHF Current Visit: No Status: Acute Assessment and plan: continue home lasix Qualifiers: Heart failure chronicity: chronic Qualified Code(s): I50.32 - Chronic diastolic (congestive) heart failure (6) CKD (chronic kidney disease) Current Visit: Yes Status: Acute Assessment and plan: monitor for now Qualifiers: Chronic kidney disease stage: stage 3 (moderate) Qualified Code(s): N18.3 - Chronic kidney disease, stage 3 (moderate) - Time Spent With Patient Total time spent is greater than 50% in coordination of care (as documented) at patient's floor/unit and/or counseling patient:
[2017-08-13] MEDS ORDERED: *HR* Dextrose 50 % in Water (Syg) 50 ML SYRINGE IVP PRN (14:16)
[2017-08-13] MEDS ORDERED: D5% in Water 1,000 ML IVC PRN (14:16)
[2017-08-13] MEDS ORDERED: Insulin LISPRO 300 UNITS/3 ML VIAL SQ SCH (14:16)
[2017-08-13] MEDS ORDERED: Dextrose Gel 15 GM/37.5 ML TUBE PO PRN ×2 (14:16)
[2017-08-13 14:19] LABS: VBG HCO3 26 mEq/L (21-27); VBG PCO2 42 mmHg (41-51); VBG PO2 154 mmHg (25-50)
[2017-08-13 14:24] LABS: ABG Base Excess 3 mEq/L (-2 to 3); ABG HCO3 32 mEq/L (21-27); ABG Oxygen Saturation 93 % (95-98); ABG PCO2 67 mmHg (35-45); ABG PH 7.28 pH Units (7.32-7.45); ABG PO2 76 mmHg (85-104); ABG TCO2 34 mEq/L (20-26)
--- NOTE | 2017-08-13 17:06 | Electrocardiograph Report ---
[place] [id number] Test Date: 2017-08-13 Pat Name: Darwin Oates Department: 103 Room: Gender: M Secured Entrance Monitor: : 1955 Requested By: Dominick Alicea Order Number: [id number] Reading MD: Rimma Diallo Measurements Intervals [place] Rate: 65 P: 47 GA: 202 QRS: -71 QRSD: 149 T: 3 QT: 435 QTc: 447 Interpretive Statements SINUS RHYTHM RIGHT BUNDLE BRANCH BLOCK [120+ ms QRS DURATION, UPRIGHT V1, 40+ ms S IN I/aVL/V4/V5/V6] INFERIOR MYOCARDIAL INFARCTION [40+ ms Q WAVE AND/OR ST/T ABNORMALITY IN II/aVF], PROBABLY OLD Electronically Signed On 08-13-2017 17:04:35 EDT by Rimma Diallo
[2017-08-13] MEDS: Ipratropium/Albuterol Neb 3 ML IH SCH ×2 (20:03→23:01)
[2017-08-13 20:59] LABS: Bilirubin,Urine Negative (Negative); Blood,Urine Negative (Negative); Clarity,Urine Clear (Clear); Color,Urine Yellow (Yellow); Glucose,Urine (UA) 500 mg/dL (Normal); Ketones,Urine Negative (Negative); Leukocyte Esterase,Urine Negative (Negative); Nitrite,Urine Negative (Negative); PH,Urine 5.5 pH Units (5.0-8.0); Protein,Urine 30 mg/dL (Neg-Trace); Specific Gravity,Urine 1.016 (1.010-1.025); Urobilinogen,Urine Normal (Normal)
[2017-08-13 21:01] LABS: Bacteria,Urine None Seen per hpf (None-Few); Hyaline Casts,Urine None Seen per lpf (None-Few); RBC,Urine 0-3 per hpf (0-3); Squamous Epithelial Cell,Urine Few per lpf (None-Few); WBC,Urine 0-3 per hpf (0-3)
[2017-08-13 21:17] LABS: Amphetamine Screen,Urine Negative ng/mL (Cutoff=1000); Barbiturate Screen,Urine Negative ng/mL (Cutoff=200); Benzodiazepines Screen,Urine Negative ng/mL (Cutoff=200); Cannabinoid Screen,Urine Negative ng/mL (Cutoff = 50); Cocaine Screen,Urine Negative ng/mL (Cutoff= 300); Opiate Screen,Urine Negative ng/mL (Cutoff=300); Phencyclidine Screen,Urine Negative ng/mL (Cutoff=25)
[2017-08-14] MEDS: MethylPREDNISolone 40 MG/ML VIAL IVP SCH ×5 (00:14→17:40)
[2017-08-14] MEDS: Melatonin 3 MG TABLET PO SCH ×2 (00:15→20:06)
[2017-08-14] MEDS: Pregabalin 75 MG CAPSULE PO SCH ×3 (00:15→20:07)
[2017-08-14] MEDS: Furosemide 40 MG TABLET PO SCH ×2 (00:17→07:52)
[2017-08-14 00:55] LABS: Basophils % 0.1 %; Hematocrit 29.3 % (37.5-50.1); Immature Granulocytes % 0.3 % (0-4); Lymphocytes # 0.3 K/mcL (0.6-4.6); Lymphocytes % 2.4 %; Mean Corpuscular HGB Conc 28.7 g/dL (31.6-35.5); Mean Corpuscular Hemoglobin 20.6 pg (28.0-33.3); Mean Corpuscular Volume 71.8 fL (83.0-100.0); Mean Platelet Volume 11.5 fL (9.4-12.4); Monocytes # 0.5 K/mcL (0.0-1.3); Neutrophils # 11.2 K/mcL (1.6-8.9); Platelet Count 142 K/mcL (140-400); Red Blood Count 4.08 M/mcL (4.19-5.50); Red Cell Distribution Width 18.4 % (11.5-14.5); Segmented Neutrophils % 93.2 %
[2017-08-14 01:05] LABS: Hemoglobin 8.4 g/dL (12.9-16.9)
[2017-08-14 01:16] LABS: Calcium 8.2 mg/dL (8.6-10.3); Magnesium 2.1 mg/dL (1.6-2.6); Potassium 5.1 mEq/L (3.5-5.1)
[2017-08-14 01:42] LABS: Hypochromasia Present (Not Present); Platelet Estimate Normal (Normal); Toxic Granulation Present (Not Present)
[2017-08-14] MEDS ORDERED: Insulin Human Regular 10 UNIT in 0.9 % Sodium Chloride 10 ML IV ONE (02:12)
[2017-08-14] MEDS: Insulin LISPRO 300 UNITS/3 ML VIAL SQ SCH ×4 (02:47→16:56)
[2017-08-14] MEDS: Ipratropium/Albuterol Neb 3 ML IH SCH ×4 (03:56→22:44)
[2017-08-14] MEDS ORDERED: *HR* Enoxaparin 40 MG/0.4 ML SYRINGE SQ SCH (06:00)
[2017-08-14] MEDS: Nicotine 21 MG PATCH.TD24 TD SCH (07:53)
--- NOTE | 2017-08-14 09:27 | Internal Med Progress Note ---
<Rima Anguiano - Last Filed: 08/14/17 16:46> Date of Encounter: 08/14/17 Time of Encounter: 09:27 - Assessment and plan (1) Acute respiratory failure with hypoxia Current Visit: Yes Status: Acute Assessment and plan: Improved overnight. Pt required BiPAP all night and is requiring oxygen via NC this morning. ARF secondary to AECOPD vs PNA. Pt does note that he has been falling asleep during activities over the last few weeks and is concerned May be secondary to worsening underlying pulmonary disease, he does have chronic hypoxia and hypercarbia. Pt does have oxygen at home, states he is not using it. Pt appears to be improving, will continue to monitor mental status closely. If he has any decline, will repeat ABG. Plan: Continue BiPAP at night as needed. Oxygen via NC to keep sats >88% when not on BiPAP Decrease solumedrol to 20mg IV Q8hr, consider changing to oral prednisone tomorrow (2) COPD with acute exacerbation Current Visit: Yes Status: Acute Assessment and plan: Pt sx improving, did require BiPAP last night and is requiring 4L O2NC Plan: Continue solumedrol, decrease to 20mg Q8hr Continue duonebs Continue IV levaquin, renally dosed (3) Diabetes mellitus type 2 in nonobese Current Visit: No Status: Acute Assessment and plan: Pt had elevated glucoses overnight as high as 653. Plan: Continue high dose SSI. Will add 20units levemir QHS for better glucose control (4) Diastolic CHF Current Visit: No Status: Acute Qualifiers: Heart failure chronicity: chronic Qualified Code(s): I50.32 - Chronic diastolic (congestive) heart failure (5) CKD (chronic kidney disease) Current Visit: Yes Status: Acute Assessment and plan: SCr increased from yesterday. May be secondary to vanc and lasix administration Plan: Will continue to hold home lasix dose Avoid nephrotoxins, renally dose medications as able Will continue to monitor Qualifiers: Chronic kidney disease stage: stage 3 (moderate) Qualified Code(s): N18.3 - Chronic kidney disease, stage 3 (moderate) (6) PNA (pneumonia) Current Visit: Yes Status: Acute Assessment and plan: CXR in ED shows mild-moderate patchy airspace opacity throughout left lung and right lower lung suggestive of asymmetric pulmonary edema vs CHF exacerbation vs b/l PNA. Plan: Continue levaquin Qualifiers: Pneumonia type: due to other aerobic Gram-negative bacteria Laterality: bilateral Lung location: lower lobe of lung Qualified Code(s): J15.6 - Pneumonia due to other Gram-negative bacteria - Time Spent With Patient Total time spent is greater than 50% in coordination of care (as documented) at patient's floor/unit and/or counseling patient: - Subjective Interval history: Pt seen and examined. Resting comfortably on NC oxygen upon my arrival, was easily aroused. Pt alert and oriented to person, place and time. Denies any pain , SOB, CP. He was on BiPAP over night and is currently on O2 via NC. He does note that he has been falling asleep at random, even when he is in the middle of things like smoking a cigarette over the last few weeks and he is very concerned about this. Pt states that he does have oxygen at home, but is not using it. He doesn't know how many liters he is on, "It's whatever it was set at when they gave it to me." He is asking to take a bath and when he will be discharged. - Constitutional Vitals: Temp Pulse Resp BP Pulse Ox 98.2 F 64 18 141/80 92 08/14/17 07:46 08/14/17 08:02 08/14/17 07:46 08/14/17 07:46 08/14/17 07:46 General appearance: Present: disheveled, A&O X 3, pleasant, no acute distress, answers questions appropriately - Head Head exam: Present: atraumatic, normocephalic - Respiratory Respiratory exam: Present: rhonchi. Absent: rales, respiratory distress, stridor, wheezes, tachypnea - Cardiovascular Cardiovascular exam: Present: RRR, +S1, +S2. Absent: diastolic murmur, gallop, rubs, systolic murmur - GI/Abdominal GI/Abdominal exam: Present: normal bowel sounds, soft, no peritoneal signs. Absent: distended, tenderness - Extremities Exam Extremities exam: Present: normal capillary refill, warm, radial pulses palpable and symmetrical. Absent: calf tenderness, cyanotic, pedal edema Additional comments: Multiple lesions/abrasions on b/l LE that are scabbed and healing - Neurological Exam Neurological exam: Present: alert, oriented X3, no focal deficits. Absent: facial droop, speech deficit - Psychiatric Psychiatric exam: Present: normal affect, normal mood - Skin Skin exam: Present: dry, normal color, warm Internal Medicine: Result - Labs CBC & Chem 7: 08/14/17 00:34 08/14/17 00:34 Labs: Short CBC 08/14/17 Range/Units 00:34 WBC 12.0 H (4.3-11.1) K/mcL Hgb 8.4 L D (12.9-16.9) g/dL Hct 29.3 L (37.5-50.1) % Plt Count 142 (140-400) K/mcL Neutrophils # 11.2 H (1.6-8.9) K/mcL BMP 08/14/17 00:34 Sodium 128 L Potassium 5.1 Chloride 94 L Carbon Dioxide 27 BUN 46 H Creatinine 2.03 H Glucose 653 H* Calcium 8.2 L - ABG Interpretation ABG results: ABG ABG pH 7.28 pH Units (7.32-7.45) L 08/13/17 14:21 ABG pCO2 67 mmHg (35-45) H 08/13/17 14:21 ABG pO2 76 mmHg (85-104) L 08/13/17 14:21 ABG O2 Saturation 93 % (95-98) L 08/13/17 14:21 PT/INR, D-dimer PT 11.2 Seconds (9.4-12.1) 08/13/17 12:07 Consult Discharge Plan - Plan Referrals: Missael Jameson MD [Primary Care Provider] - 08/23/17 11:15 am <Jena Odom - Last Filed: 08/14/17 18:19> Date of Encounter: 08/14/17 - Assessment and plan (1) Diastolic CHF Current Visit: No Status: Acute Qualifiers: Heart failure chronicity: chronic Qualified Code(s): I50.32 - Chronic diastolic (congestive) heart failure (2) Diabetes mellitus type 2 in nonobese Current Visit: No Status: Acute (3) COPD with acute exacerbation Current Visit: Yes Status: Acute (4) CKD (chronic kidney disease) Current Visit: Yes Status: Acute Qualifiers: Chronic kidney disease stage: stage 3 (moderate) Qualified Code(s): N18.3 - Chronic kidney disease, stage 3 (moderate) (5) Acute respiratory failure with hypoxia Current Visit: Yes Status: Acute (6) PNA (pneumonia) Current Visit: Yes Status: Acute Qualifiers: Pneumonia type: due to other aerobic Gram-negative bacteria Laterality: bilateral Lung location: lower lobe of lung Qualified Code(s): J15.6 - Pneumonia due to other Gram-negative bacteria - Time Spent With Patient Total time spent is greater than 50% in coordination of care (as documented) at patient's floor/unit and/or counseling patient: - Constitutional Vitals: Temp Pulse Resp BP Pulse Ox 97.8 F 70 18 150/79 97 08/14/17 16:10 08/14/17 16:10 08/14/17 16:10 08/14/17 16:10 08/14/17 16:10 Internal Medicine: Result - Labs CBC & Chem 7: 08/14/17 00:34 08/14/17 00:34 Labs: Short CBC 08/14/17 Range/Units 00:34 WBC 12.0 H (4.3-11.1) K/mcL Hgb 8.4 L D (12.9-16.9) g/dL Hct 29.3 L (37.5-50.1) % Plt Count 142 (140-400) K/mcL Neutrophils # 11.2 H (1.6-8.9) K/mcL BMP 08/14/17 00:34 Sodium 128 L Potassium 5.1 Chloride 94 L Carbon Dioxide 27 BUN 46 H Creatinine 2.03 H Glucose 653 H* Calcium 8.2 L - ABG Interpretation ABG results: ABG ABG pH 7.28 pH Units (7.32-7.45) L 08/13/17 14:21 ABG pCO2 67 mmHg (35-45) H 08/13/17 14:21 ABG pO2 76 mmHg (85-104) L 08/13/17 14:21 ABG O2 Saturation 93 % (95-98) L 08/13/17 14:21 PT/INR, D-dimer PT 11.2 Seconds (9.4-12.1) 08/13/17 12:07 - Attending Attestation I examined this patient and my medical decision-making was reviewed with the Resident Physician. I agree with the documented findings, disposition and treatment plan as described except to the extent set forth below. Presents for acute respiratory failure On my exam patient is in no acute distress but is requiring oxygen, currently on NC. He does have wheezing on exam, normal cardiac sounds. Patient to be continued treatment for respiratory distress Glucose elevated 400s-600s will start long acting insulin Hold Lasix and monitor renal function continue antibiotic therapy for pneumonia.
[2017-08-14] MEDS: *HR* Heparin 5,000 UNIT/ML VIAL SQ SCH (16:56)
[2017-08-14] MEDS ORDERED: Insulin DETEMIR 100 UNIT/ML X5UNITS SQ SCH (21:00)
[2017-08-15] MEDS: MethylPREDNISolone 40 MG/ML VIAL IVP SCH (03:46)
[2017-08-15] MEDS: Insulin LISPRO 300 UNITS/3 ML VIAL SQ SCH ×2 (03:49→08:07)
[2017-08-15] MEDS: Ipratropium/Albuterol Neb 3 ML IH SCH ×3 (04:04→15:28)
[2017-08-15 04:24] LABS: Hemoglobin 8.1 g/dL (12.9-16.9); Immature Granulocytes % 0.4 % (0-4); Immature Platelets 7.4 % (1.1-6.1); Lymphocytes # 0.6 K/mcL (0.6-4.6); Lymphocytes % 6.1 %; Mean Corpuscular Hemoglobin 21.2 pg (28.0-33.3); Mean Corpuscular Volume 70.7 fL (83.0-100.0); Mean Platelet Volume 11.5 fL (9.4-12.4); Monocytes # 0.7 K/mcL (0.0-1.3); Monocytes % 7.8 %; Neutrophils # 7.9 K/mcL (1.6-8.9); Platelet Count 148 K/mcL (140-400); Red Blood Count 3.82 M/mcL (4.19-5.50); Red Cell Distribution Width 17.9 % (11.5-14.5); Segmented Neutrophils % 85.7 %
[2017-08-15 04:42] LABS: BUN/Creatinine Ratio 33 (6-26); Blood Urea Nitrogen 47 mg/dL (8-23); Calcium 8.9 mg/dL (8.6-10.3); Carbon Dioxide 29 mEq/L (23-29); Chloride 99 mEq/L (98-107); Glucose 191 mg/dL (70-105); Osmolality,Calculated 299 (280-300); Potassium 4.7 mEq/L (3.5-5.1); Sodium 136 mEq/L (136-145); eGFR For African Americans > 60 (> 60); eGFR For Non-African Americans 51 (> 60)
[2017-08-15 05:02] LABS: Anisocytosis 1+ (Not Present); Hypochromasia Present (Not Present); Platelet Estimate Normal (Normal)
[2017-08-15] MEDS: *HR* Heparin 5,000 UNIT/ML VIAL SQ SCH (05:22)
[2017-08-15] MEDS: Pregabalin 75 MG CAPSULE PO SCH (07:43)
[2017-08-15] MEDS: Nicotine 21 MG PATCH.TD24 TD SCH (07:44)
[2017-08-15 07:53] VITALS: BP 150/91
[2017-08-15] MEDS ORDERED: Levofloxacin 750 MG/150 ML 750 MG/150 ML BAG IVPB SCH (09:00)
--- NOTE | 2017-08-15 09:32 | Internal Med Progress Note ---
Date of Encounter: 08/15/17 Time of Encounter: 09:14 - Assessment and plan (1) Acute respiratory failure with hypoxia Current Visit: Yes Status: Acute (2) COPD with acute exacerbation Current Visit: Yes Status: Acute (3) PNA (pneumonia) Current Visit: Yes Status: Acute Qualifiers: Pneumonia type: due to other aerobic Gram-negative bacteria Laterality: bilateral Lung location: lower lobe of lung Qualified Code(s): J15.6 - Pneumonia due to other Gram-negative bacteria (4) Diabetes mellitus type 2 in nonobese Current Visit: No Status: Acute (5) Diastolic CHF Current Visit: No Status: Acute Qualifiers: Heart failure chronicity: chronic Qualified Code(s): I50.32 - Chronic diastolic (congestive) heart failure (6) CKD (chronic kidney disease) Current Visit: Yes Status: Acute Qualifiers: Chronic kidney disease stage: stage 3 (moderate) Qualified Code(s): N18.3 - Chronic kidney disease, stage 3 (moderate) - Time Spent With Patient Total time spent is greater than 50% in coordination of care (as documented) at patient's floor/unit and/or counseling patient: - Subjective Interval history: Pt seen and examined. Resting comfortably on NC oxygen upon my arrival, was easily aroused. Pt alert and oriented to person, place and time. Denies any pain , SOB, CP. He was on BiPAP over night and is currently on O2 via NC. He does note that he has been falling asleep at random, even when he is in the middle of things like smoking a cigarette over the last few weeks and he is very concerned about this. Pt states that he does have oxygen at home, but is not using it. He doesn't know how many liters he is on, "It's whatever it was set at when they gave it to me." He is asking to take a bath and when he will be discharged. - Constitutional Vitals: Temp Pulse Resp BP Pulse Ox 98.0 F 76 20 150/91 95 08/15/17 07:48 08/15/17 08:01 08/15/17 07:51 08/15/17 07:51 08/15/17 07:51 General appearance: Present: disheveled, A&O X 3, pleasant, no acute distress, answers questions appropriately Internal Medicine: Result - Labs CBC & Chem 7: 08/15/17 03:25 08/15/17 03:25 Labs: Short CBC 08/15/17 Range/Units 03:25 WBC 9.2 (4.3-11.1) K/mcL Hgb 8.1 L (12.9-16.9) g/dL Hct 27.0 L (37.5-50.1) % Plt Count 148 (140-400) K/mcL Neutrophils # 7.9 (1.6-8.9) K/mcL BMP 08/15/17 03:25 Sodium 136 Potassium 4.7 Chloride 99 Carbon Dioxide 29 BUN 47 H Creatinine 1.41 H Glucose 191 H Calcium 8.9 - ABG Interpretation ABG results: ABG ABG pH 7.28 pH Units (7.32-7.45) L 08/13/17 14:21 ABG pCO2 67 mmHg (35-45) H 08/13/17 14:21 ABG pO2 76 mmHg (85-104) L 08/13/17 14:21 ABG O2 Saturation 93 % (95-98) L 08/13/17 14:21 PT/INR, D-dimer PT 11.2 Seconds (9.4-12.1) 08/13/17 12:07 Consult Discharge Plan - Plan Referrals: Missael Jameson MD [Primary Care Provider] - 08/23/17 11:15 am
[2017-08-15] MEDS ORDERED: predniSONE 20 MG TABLET PO SCH (09:45)
--- NOTE | 2017-08-15 10:09 | Discharge Summary ---
<Rima Anguiano - Last Filed: 08/15/17 14:40> - NOTES TO OUTPATIENT PROVIDER Notes to Outpatient Provider: PATIENT WILL NEED A REPEAT BMP AND CBC IN 3-5 DAYS FROM DISCHARGE. PROVIDED PRESCRIPTION FOR DOXYCYCLINE AND PREDNISONE Orders not resulted at time of discharge: BLOOD CULTURES PENDING Date of Encounter: 08/15/17 Time of Encounter: 10:07 - Discharge Diagnosis (1) Acute respiratory failure with hypoxia Priority: Primary Status: Acute (2) PNA (pneumonia) Priority: Secondary Status: Acute Qualifiers: Pneumonia type: due to other aerobic Gram-negative bacteria Laterality: bilateral Lung location: lower lobe of lung Qualified Code(s): J15.6 - Pneumonia due to other Gram-negative bacteria (3) COPD with acute exacerbation Priority: Secondary Status: Acute (4) Diabetes mellitus type 2 in nonobese Priority: Secondary Status: Chronic (5) Diastolic CHF Priority: Secondary Status: Acute Qualifiers: Heart failure chronicity: chronic Qualified Code(s): I50.32 - Chronic diastolic (congestive) heart failure (6) CKD (chronic kidney disease) Priority: Secondary Status: Chronic Qualifiers: Chronic kidney disease stage: stage 3 (moderate) Qualified Code(s): N18.3 - Chronic kidney disease, stage 3 (moderate) Hospital course: Mr. Oates is a 62 year old male presented to [facility] ED after being found unresponsive at home. He had recently been hospitalized with pneumonia. Upon arrival he was found to be in acute respiratory failure with hypoxia, hypercapnea and respiratory acidosis. He was admitted for pneumonia, copd exacerbation and ALMA. He was treated with levaquin, prednisone and nebs. He was on BiPAP initially and then weaned off to nasal canula oxygen. When off oxygen, his oxygen saturations decrease to the low 80's. He states that he does have oxygen at home, but chooses not to wear it. I discussed with the patient that he will need to be compliant with wearing his oxygen at all times until he follows up with his PCP. He states that he will be. During his stay his serum creatinine decreased, but is not yet in normal range. The patient's status improved and he was able to be discharged home on continuous oxygen at 2L, doxycycline, prednisone and will be repeating a BMP and CBC in 3-5 days after discharge. Discharge discussed with: patient - Time Spent with Patient Total time spent providing and/or coordinating discharge services: - Discharge Medications Prescriptions: Doxycycline 100 mg PO BID 7 Days #14 capsule predniSONE [PredniSONE] 40 mg PO DAILY 5 Days #5 tablet Home Medications: Atorvastatin [Lipitor] 40 mg PO HS 08/13/17 [History] Furosemide [Lasix] 40 mg PO BID 08/13/17 [History] Ibuprofen [Ibu] 400 mg PO BID 08/13/17 [History] Melatonin 1 mg PO HS 08/13/17 [History] Pregabalin [Lyrica] 150 mg PO BID 08/13/17 [History] glyBURIDE [GlyBURIDE] 10 mg PO BID 08/13/17 [History] Doxycycline 100 mg PO BID 7 Days #14 capsule 08/15/17 [Rx] predniSONE [PredniSONE] 40 mg PO DAILY 5 Days #5 tablet 08/15/17 [Rx] Allergies/Adverse Reactions: 3 Allergy/AdvReac Type Severity Reaction Status Date / Time Penicillins [PCN] AdvReac See Verified 03/16/17 08:00 Comments Date of admission: 08/13/17 21:15 Primary care physician: Missael Jameson, Discharging clinician: Rima Anguiano Anticipated date of discharge: 08/15/17 - Constitutional Vitals: Temp Pulse Resp BP Pulse Ox 98.0 F 76 20 150/91 95 08/15/17 07:48 08/15/17 08:01 08/15/17 07:51 08/15/17 07:51 08/15/17 07:51 General appearance: Present: cooperative, disheveled, A&O X 3, pleasant, no acute distress, answers questions appropriately - Head Head exam: Present: atraumatic, normocephalic - Eye Eye exam: Present: PERRL, conjuntiva pink, sclera anicteric Pupils: Present: PERRL - Neck Neck exam general surgery: Present: supple, trachea midline. Absent: lymphadenopathy - Respiratory Respiratory exam: Present: rales, wheezes. Absent: accessory muscle use, respiratory distress, tachypnea - Cardiovascular Cardiovascular exam: Present: RRR, +S1, +S2. Absent: diastolic murmur, gallop, rubs, systolic murmur - GI/Abdominal GI/Abdominal exam: Present: normal bowel sounds, soft, no peritoneal signs. Absent: distended, tenderness - Extremities Exam Extremities exam: Present: warm, radial pulses palpable and symmetrical. Absent : calf tenderness, cyanotic, pedal edema - Neurological Exam Neurological exam: Present: oriented X3, no focal deficits. Absent: facial droop, speech deficit - Psychiatric Psychiatric exam: Present: normal affect, normal mood - Skin Skin exam: Present: dry, intact - Patient Status Disposition: Home, Self-Care Condition: Good Functional capacity at discharge: independent ambulation Overall status at discharge: patient is progressing back to baseline - Discharge Instructions Instructions: Chronic Obstructive Pulmonary Disease (DC) Follow Up With: Missael Jameson MD [Primary Care Provider] - 08/23/17 11:15 am Additional Instructions: MAKE SURE TO WEAR YOUR OXYGEN AT 2 LITERS AT ALL TIMES. TAKE PREDNISONE ONCE A DAY FOR THE NEXT 5 DAYS TAKE ALL OF THE DOSES OF DOXYCYLINE GET YOUR BLOOD DRAWN IN 3- 5 DAYS AFTER DISCHARGE FOLLOW UP WITH YOUR PCP WITHIN 3-5 DAYS AFTER DISCHARGE IF YOU BECOME DIZZY, LIGHTHEADED, CONFUSED, HAVE WORSENING TROUBLE BREATHING THEN GOT TO THE ER.S - Diet and Activity Activity: increase activity as tolerated Diet: diabetic diet <Jena Odom - Last Filed: 08/18/17 07:27> Date of Encounter: 08/18/17 - Discharge Diagnosis (1) Diastolic CHF Status: Acute Qualifiers: Heart failure chronicity: chronic Qualified Code(s): I50.32 - Chronic diastolic (congestive) heart failure (2) Diabetes mellitus type 2 in nonobese Status: Chronic (3) COPD with acute exacerbation Status: Acute (4) CKD (chronic kidney disease) Status: Chronic Qualifiers: Chronic kidney disease stage: stage 3 (moderate) Qualified Code(s): N18.3 - Chronic kidney disease, stage 3 (moderate) (5) Acute respiratory failure with hypoxia Status: Acute (6) PNA (pneumonia) Status: Acute Qualifiers: Pneumonia type: due to other aerobic Gram-negative bacteria Laterality: bilateral Lung location: lower lobe of lung Qualified Code(s): J15.6 - Pneumonia due to other Gram-negative bacteria Hospital course: Mr. Oates is a 62 year old male - Time Spent with Patient Total time spent providing and/or coordinating discharge services: Date of admission: 08/13/17 21:15 Primary care physician: Missael Jameson, - Constitutional Vitals: Temp Pulse Resp BP Pulse Ox 98.0 F 93 20 150/91 89 08/15/17 07:48 08/15/17 11:35 08/15/17 11:35 08/15/17 07:51 08/15/17 11:20 - Attending Attestation I have seen and examine patient with the resident and agree with care and plan.
== END 2017-08-15 15:39 | disposition home or self-care (01) | DRG 190 ==
LOC: EMEROO 11:02 → 2NNU 21:15
PROVIDERS: ADMIT Internal Medicine Hematology & Oncology; ATTEND Internal Medicine Hematology & Oncology